=== PATIENT | male | born 1950 | race Caucasian/White ===

== ENCOUNTER → 2017-10-30 | Outpatient (CLI) | payer MEDICARE, MEDICAID, SELFPAY | PROVIDERS: Visit Provider Internal Medicine | DX: E78.5 Hyperlipidemia, unspecified (principal) | CPT/HCPCS: 36415; 80061; 80076 ==

== ENCOUNTER → 2017-11-12 10:08 | Outpatient (REF) | payer MEDICARE, MEDICAID, SELFPAY ==
[2017-11-12 13:01] LABS: Amphetamine/Metha Screen,Urine Negative ng/mL (<1000); Barbiturates Screen,Urine Negative ng/mL (<200); Benzodiazepines Screen,Urine Negative ng/mL (200); Cannabinoid Screen,Urine Negative ng/mL (<50); Cocaine Screen,Urine Negative ng/g (<300); Methadone Screen,Urine Negative ng/mL (<300); Opiate Screen,Urine Negative ng/mL (<300); Phencyclidine Screen,Urine Negative ng/mL (<25)
[2017-11-24 09:19] LABS: Alprazolam Negative (Cutoff=100); Benzodiazepines Positive ng/mL (Cutoff=100); Clonazepam Negative (Cutoff=100); Flurazepam Negative (Cutoff=100); Lorazepam Positive (.); Midazolam Negative (Cutoff=100); Temazepam Negative (Cutoff=100); Triazolam Negative (Cutoff=100)
== END ==
LOC: LAB 10:08
PROVIDERS: Visit Provider Nurse Practitioner Family
DX: Z79.899 Other long term (current) drug therapy (principal); F41.9 Anxiety disorder, unspecified
CPT/HCPCS: 80305

== ENCOUNTER 2018-01-28 07:02 | Day surgery (SDC) | payer MEDICARE, MEDICAID, SELFPAY ==
[2018-01-27 13:34] VITALS: BMI 27.4
[2018-01-28 07:21] VITALS: BP 126/79; PULSE 69; RESP 18; TEMP 36.6; O2SAT 94
--- NOTE | 2018-01-28 08:01 | HMH.OPNOTE ---
Date of procedure: 01/28/18 Pre-op Diagnosis:: 1 cm left axillary sebaceous cyst Post-op Diagnosis:: Same Procedure performed:: Excision of 1 cm left axillary sebaceous cyst Surgeon:: Lizandro Flor MD Anesthesia: local Estimated blood loss (mL): 5 Operative findings:: Cyst in shallow subcutaneous tissue Operative note:: After informed consent was obtained, the patient was taken to the procedure room. He was maintained in the supine position. His left axilla was prepped and draped in a sterile fashion. After infiltration with local anesthetic an elliptical incision was made around the lesion. The lesion was excised in toto sharply with scalpel and passed off for pathologic evaluation. The lesion directed to the fairly shallow subcutaneous tissue. Cautery was utilized to achieve hemostasis. Skin was closed with interrupted 4-0 nylon in a dressing was applied. The patient was transferred to recovery in stable condition. Condition: stable Disposition: PACU Specimens:: 1 cm left axillary sebaceous cyst Complications:: No immediate
[2018-01-28 08:03] VITALS: BP 105/73; PULSE 58; RESP 16; TEMP 36.7; O2SAT 98
[2018-01-28 08:06] VITALS: BP 105/73; PULSE 60; RESP 20; O2SAT 96
--- NOTE | 2018-01-28 09:44 | SUR.OPER ---
dressing applied to left axilla-triple antibiotic ointment, 4x4sl, tegaderm
== END 2018-01-28 08:10 | disposition home or self-care (01) ==
LOC: OUTP 07:04
PROVIDERS: Family Provider Emergency Medicine; PCP Nurse Practitioner Family; Visit Provider Surgery
DX: L72.3 Sebaceous cyst (principal)
CPT/HCPCS: 11401; 88304

== ENCOUNTER → 2018-03-04 08:24 | Outpatient (REF) | payer MEDICARE, MEDICAID, SELFPAY ==
[2018-03-04 14:18] LABS: Amphetamine/Metha Screen,Urine Negative ng/mL (<1000); Barbiturates Screen,Urine Negative ng/mL (<200); Benzodiazepines Screen,Urine Negative ng/mL (200); Cannabinoid Screen,Urine Negative ng/mL (<50); Cocaine Screen,Urine Negative ng/g (<300); Methadone Screen,Urine Negative ng/mL (<300); Opiate Screen,Urine Negative ng/mL (<300); Phencyclidine Screen,Urine Negative ng/mL (<25)
== END ==
LOC: LAB 08:24
PROVIDERS: Visit Provider Nurse Practitioner Family
DX: Z79.899 Other long term (current) drug therapy (principal)
CPT/HCPCS: 80305

== ENCOUNTER → 2018-03-04 23:17 | Outpatient (REF) | payer MEDICARE, MEDICAID, SELFPAY ==
[2018-03-15 22:17] LABS: Alprazolam Negative (Cutoff=100); Benzodiazepines Positive ng/mL (Cutoff=100); Clonazepam Negative (Cutoff=100); Flurazepam Negative (Cutoff=100); Lorazepam Positive (.); Midazolam Negative (Cutoff=100); Temazepam Negative (Cutoff=100); Triazolam Negative (Cutoff=100)
== END ==
LOC: LAB 23:17
PROVIDERS: Visit Provider Nurse Practitioner Family
DX: Z79.899 Other long term (current) drug therapy (principal)
CPT/HCPCS: 80346

== ENCOUNTER → 2018-06-06 15:01 | Outpatient (REF) | payer MEDICARE, MEDICAID, SELFPAY ==
[2018-06-06 20:11] LABS: Amphetamine/Metha Screen,Urine Negative ng/mL (<1000); Barbiturates Screen,Urine Negative ng/mL (<200); Benzodiazepines Screen,Urine Negative ng/mL (<200); Cannabinoid Screen,Urine Negative ng/mL (<50); Cocaine Screen,Urine Negative ng/mL (<300); Methadone Screen,Urine Negative ng/mL (<300); Opiate Screen,Urine Negative ng/mL (<300); Phencyclidine Screen,Urine Negative ng/mL (<25)
== END ==
LOC: LAB 15:01
PROVIDERS: Visit Provider Nurse Practitioner Family
DX: Z79.899 Other long term (current) drug therapy (principal)
CPT/HCPCS: 80305

== ENCOUNTER → 2018-07-05 08:33 | Outpatient (CLI) | payer MEDICARE, MEDICAID, SELFPAY ==
[2018-07-05 08:59] LABS: Basophils % 0.5 % (0.1-2.0); Eosinophils # 0.3 K/mm3 (0.0-0.4); Eosinophils % 3.8 % (0.1-12.0); Hematocrit 44.7 % (42.0-52.0); Hemoglobin 14.5 g/dL (14.1-18.0); Lymphocytes % 28.5 K/mm3 (10-50); Mean Corpuscular HGB Conc 32.5 g/dL (31.8-35.4); Mean Corpuscular Hemoglobin 30.5 pg (27.0-31.2); Mean Platelet Volume 7.2 fl (7.4-10.4); Monocytes # 0.5 K/mm3 (0.1-1.0); Monocytes % 6.9 % (1.7-9.3); Neutrophils # 4.2 K/mm3 (1.8-7.8); Neutrophils % 60.4 % (37.0-80.0); Platelet Count 200 K/mm3 (142-424); Red Blood Count 4.75 M/mm3 (4.60-6.20); Red Cell Distribution Width 13.5 % (11.5-17.5); White Blood Count 6.9 K/mm3 (4.8-10.8)
[2018-07-05 10:11] LABS: Alanine Aminotransferase 28 U/L (12-78); Albumin Level 4.2 gm/dL (3.4-5.0); Alkaline Phosphatase 69 U/L (46-116); Aspartate Amino Transferase 17 U/L (15-37); Bilirubin,Direct 0.1 mg/dL (0.0-0.2); Bilirubin,Indirect 0.6 mg/dL (0.0-0.9); Bilirubin,Total 0.7 mg/dL (0.2-1.0); Total Protein,Serum 7.7 gm/dL (6.4-8.2)
[2018-07-05 10:21] LABS: Alanine Aminotransferase 28 U/L (12-78); Albumin Level 4.1 gm/dL (3.4-5.0); Albumin/Globulin Ratio 1.1 (1.1-1.8); Alkaline Phosphatase 68 U/L (46-116); Anion Gap 10.7 mEq/L (5-15); Aspartate Amino Transferase 17 U/L (15-37); Bilirubin,Total 0.6 mg/dL (0.2-1.0); Blood Urea Nitrogen 21 mg/dL (7-18); Calcium 9.5 mg/dL (8.5-10.1); Carbon Dioxide 33 mmol/L (21.0-32.0); Chloride 104 mmol/L (98-107); Chol/HDL Ratio 5.8 (1-3.5); Cholesterol 228 mg/dL (140-200); Creatinine,Serum 1.38 mg/dL (0.70-1.30); Estimated Glomerular Filt Rate 51 ml/min (>60); GFR (African American) 62 ML/MIN (>60); Globulin 3.6 gm/dl (1.3-3.2); Glucose 104 mg/dL (74-106); HDL Cholesterol 39 mg/dL (27-67); LDL Cholesterol 128 mg/dL (0-130); Potassium 4.7 mmoL/L (3.5-5.1); Sodium 143 mmol/L (136-145); T4 (Thyroxine) 7.6 ug/dl (4.7-13.3); Thyroid Stimulating Hormone 1.76 uIU/ml (0.358-3.740); Total Protein,Serum 7.7 gm/dL (6.4-8.2); Triglycerides 306 mg/dL (30-200); VLDL Cholesterol 61 mg/dL (0-40)
== END ==
PROVIDERS: Physician Assistant; PCP Nurse Practitioner Family; Visit Provider Emergency Medicine
DX: I25.10 Atherosclerotic heart disease of native coronary artery without angina pectoris (principal); R53.83 Other fatigue; I10 Essential (primary) hypertension
CPT/HCPCS: 36415; 80053; 80061; 80076; 84436; 84443; 85025

== ENCOUNTER → 2018-09-08 13:27 | Outpatient (CLI) | payer MEDICARE, MEDICAID, SELFPAY ==
[2018-09-08 17:06] LABS: Amphetamine/Metha Screen,Urine Negative ng/mL (<1000); Barbiturates Screen,Urine Negative ng/mL (<200); Benzodiazepines Screen,Urine Negative ng/mL (<200); Cannabinoid Screen,Urine Negative ng/mL (<50); Cocaine Screen,Urine Negative ng/mL (<300); Methadone Screen,Urine Negative ng/mL (<300); Opiate Screen,Urine Negative ng/mL (<300); Phencyclidine Screen,Urine Negative ng/mL (<25)
== END ==
PROVIDERS: PCP Nurse Practitioner Family; Visit Provider Nurse Practitioner Family
DX: Z79.899 Other long term (current) drug therapy (principal)
CPT/HCPCS: 80305

== ENCOUNTER → 2018-12-06 14:06 | Outpatient (CLI) | payer MEDICARE, MEDICAID, SELFPAY ==
[2018-12-06 15:08] LABS: Amphetamine/Metha Screen,Urine Negative ng/mL (<1000); Barbiturates Screen,Urine Negative ng/mL (<200); Benzodiazepines Screen,Urine Negative ng/mL (<200); Cannabinoid Screen,Urine Negative ng/mL (<50); Cocaine Screen,Urine Negative ng/mL (<300); Methadone Screen,Urine Negative ng/mL (<300); Opiate Screen,Urine Negative ng/mL (<300); Phencyclidine Screen,Urine Negative ng/mL (<25)
[2018-12-10 14:16] LABS: Alprazolam Negative (Cutoff=100); Benzodiazepines Positive ng/mL (Cutoff=100); Clonazepam Negative (Cutoff=100); Flurazepam Negative (Cutoff=100); Lorazepam Positive (.); Midazolam Negative (Cutoff=100); Temazepam Negative (Cutoff=100); Triazolam Negative (Cutoff=100)
== END ==
PROVIDERS: Visit Provider Nurse Practitioner Family
DX: Z79.899 Other long term (current) drug therapy (principal)
CPT/HCPCS: 80305; 80346

== ENCOUNTER → 2019-01-24 14:17 | Outpatient (CLI) | payer MEDICARE, MEDICAID, SELFPAY ==
[2019-01-24 14:35] LABS: Basophils # 0.1 K/mm3 (0-0.2); Eosinophils # 0.2 K/mm3 (0.0-0.4); Eosinophils % 2.6 % (0.1-12.0); Hematocrit 46.1 % (42.0-52.0); Hemoglobin 15.2 g/dL (14.1-18.0); Lymphocytes # 1.8 K/mm3 (0.7-4.5); Lymphocytes % 26.7 % (10-50); Mean Corpuscular Volume 93.8 fl (80-94); Mean Platelet Volume 8.1 fl (7.4-10.4); Monocytes # 0.4 K/mm3 (0.1-1.0); Monocytes % 6.2 % (1.7-9.3); Neutrophils # 4.3 K/mm3 (1.8-7.8); Neutrophils % 63.4 % (37.0-80.0); Platelet Count 231 K/mm3 (142-424); Red Blood Count 4.92 M/mm3 (4.60-6.20); Red Cell Distribution Width 13.7 % (11.5-17.5); White Blood Count 6.8 K/mm3 (4.8-10.8)
[2019-01-24 15:03] LABS: Amphetamine/Metha Screen,Urine Negative ng/mL (<1000); Barbiturates Screen,Urine Negative ng/mL (<200); Benzodiazepines Screen,Urine Negative ng/mL (<200); Cannabinoid Screen,Urine Negative ng/mL (<50); Cocaine Screen,Urine Negative ng/mL (<300); Methadone Screen,Urine Negative ng/mL (<300); Opiate Screen,Urine Negative ng/mL (<300); Phencyclidine Screen,Urine Negative ng/mL (<25)
[2019-01-24 15:19] LABS: Alanine Aminotransferase 31 U/L (12-78); Albumin Level 4.5 gm/dL (3.4-5.0); Albumin/Globulin Ratio 1.2 (1.1-1.8); Alkaline Phosphatase 76 U/L (46-116); Anion Gap 17.1 mEq/L (5-15); Aspartate Amino Transferase 25 U/L (15-37); Bilirubin,Total 0.7 mg/dL (0.2-1.0); Blood Urea Nitrogen 20 mg/dL (7-18); Calcium 9.6 mg/dL (8.5-10.1); Carbon Dioxide 26 mmol/L (21.0-32.0); Chloride 100 mmol/L (98-107); Chol/HDL Ratio 6.6 (1-3.5); Cholesterol 285 mg/dL (140-200); Creatinine,Serum 1.42 mg/dL (0.70-1.30); Estimated Glomerular Filt Rate 50 ml/min (>60); Free Thyroxine Index 2.5 ug/dL (5.93-13.13); GFR (African American) 60 ML/MIN (>60); Globulin 3.7 gm/dl (1.3-3.2); Glucose 115 mg/dL (74-106); HDL Cholesterol 43 mg/dL (27-67); LDL Cholesterol 181 mg/dL (0-130); Potassium 4.1 mmoL/L (3.5-5.1); Sodium 139 mmol/L (136-145); T4 (Thyroxine) 7.9 ug/dl (4.7-13.3); Thyroid Stimulating Hormone 1.66 uIU/ml (0.358-3.740); Total Protein,Serum 8.2 gm/dL (6.4-8.2); Triglycerides 305 mg/dL (30-200); Triiodothryronine (T3) Uptake 32 % (31-39); VLDL Cholesterol 61 mg/dL (0-40)
[2019-01-26 12:57] LABS: Vitamin D 25 Hydroxy 32.1 ng/mL (30.0-100.0)
== END ==
PROVIDERS: Visit Provider Nurse Practitioner Family
DX: E78.5 Hyperlipidemia, unspecified (principal); R53.83 Other fatigue; Z79.899 Other long term (current) drug therapy
CPT/HCPCS: 80053; 80061; 80305; 82652; 84436; 84443; 84479; 85025

== ENCOUNTER → 2019-04-15 08:11 | Outpatient (CLI) | payer MEDICARE, MEDICAID, SELFPAY ==
[2019-04-15 08:45] LABS: Hemoglobin A1C 5.8 % (0.0-7.0)
== END ==
PROVIDERS: Visit Provider Physician Assistant
DX: E78.5 Hyperlipidemia, unspecified (principal); R73.9 Hyperglycemia, unspecified
CPT/HCPCS: 36415; 83036

== ENCOUNTER → 2019-05-15 07:57 | Outpatient (CLI) | payer MEDICARE, MEDICAID, SELFPAY ==
[2019-05-15 12:53] LABS: Anion Gap 15.2 mEq/L (5-15); Blood Urea Nitrogen 20 mg/dL (7-18); Calcium 9.5 mg/dL (8.5-10.1); Carbon Dioxide 25 mmol/L (21.0-32.0); Chloride 102 mmol/L (98-107); Chol/HDL Ratio 4.9 (1-3.5); Cholesterol 256 mg/dL (140-200); Creatinine,Serum 1.41 mg/dL (0.70-1.30); Estimated Glomerular Filt Rate 50 ml/min (>60); GFR (African American) 60 ML/MIN (>60); Glucose 93 mg/dL (74-106); HDL Cholesterol 52 mg/dL (27-67); LDL Cholesterol 190 mg/dL (0-130); Potassium 4.2 mmoL/L (3.5-5.1); Sodium 138 mmol/L (136-145); T4 (Thyroxine) 6.2 ug/dl (4.7-13.3); Triglycerides 69 mg/dL (30-200); VLDL Cholesterol 14 mg/dL (0-40)
== END ==
PROVIDERS: Visit Provider Nurse Practitioner Family
DX: E78.5 Hyperlipidemia, unspecified (principal); F41.9 Anxiety disorder, unspecified; R79.89 Other specified abnormal findings of blood chemistry
CPT/HCPCS: 36415; 80048; 80061; 84436; 84443

== ENCOUNTER → 2019-07-10 18:06 | Outpatient (CLI) | payer MEDICARE, MEDICAID, SELFPAY ==
[2019-07-10 19:11] LABS: Amphetamine/Metha Screen,Urine Negative ng/mL (<1000); Barbiturates Screen,Urine Negative ng/mL (<200); Benzodiazepines Screen,Urine Negative ng/mL (<200); Cannabinoid Screen,Urine Negative ng/mL (<50); Cocaine Screen,Urine Negative ng/mL (<300); Methadone Screen,Urine Negative ng/mL (<300); Opiate Screen,Urine Negative ng/mL (<300); Phencyclidine Screen,Urine Negative ng/mL (<25)
== END ==
PROVIDERS: Visit Provider Nurse Practitioner Family
DX: Z79.899 Other long term (current) drug therapy (principal)
CPT/HCPCS: 80305

== ENCOUNTER → 2019-07-25 08:02 | Outpatient (CLI) | payer MEDICARE, MEDICAID, SELFPAY ==
[2019-07-25 08:42] LABS: Anion Gap 15.4 mEq/L (5-15); Blood Urea Nitrogen 20 mg/dL (7-18); Calcium 9.8 mg/dL (8.5-10.1); Carbon Dioxide 28 mmol/L (21.0-32.0); Chloride 100 mmol/L (98-107); Creatinine,Serum 1.48 mg/dL (0.70-1.30); Estimated Glomerular Filt Rate 47 ml/min (>60); GFR (African American) 57 ML/MIN (>60); Glucose 105 mg/dL (74-106); Potassium 4.4 mmoL/L (3.5-5.1); Sodium 139 mmol/L (136-145)
== END ==
PROVIDERS: Nurse Practitioner Family; Visit Provider Nurse Practitioner Family
DX: R79.89 Other specified abnormal findings of blood chemistry (principal)
CPT/HCPCS: 36415; 80048

== ENCOUNTER → 2019-10-05 16:18 | Outpatient (CLI) | payer MEDICARE, SELFPAY ==
[2019-10-05 16:40] LABS: Basophils # 0.1 K/mm3 (0-0.2); Basophils % 0.8 % (0.1-2.0); Eosinophils # 0.2 K/mm3 (0.0-0.4); Eosinophils % 2.5 % (0.1-12.0); Hematocrit 45.3 % (42.0-52.0); Hemoglobin 14.8 g/dL (14.1-18.0); Lymphocytes # 1.6 K/mm3 (0.7-4.5); Lymphocytes % 19.4 % (10-50); Mean Corpuscular HGB Conc 32.6 g/dL (31.8-35.4); Mean Corpuscular Hemoglobin 30.2 pg (27.0-31.2); Mean Corpuscular Volume 92.5 fl (80-94); Mean Platelet Volume 7.9 fl (7.4-10.4); Monocytes # 0.6 K/mm3 (0.1-1.0); Monocytes % 7.5 % (1.7-9.3); Neutrophils # 5.7 K/mm3 (1.8-7.8); Neutrophils % 69.9 % (37.0-80.0); Platelet Count 230 K/mm3 (142-424); Red Blood Count 4.89 M/mm3 (4.60-6.20); Red Cell Distribution Width 13.9 % (11.5-17.5); White Blood Count 8.2 K/mm3 (4.8-10.8)
[2019-10-05 18:55] LABS: Alanine Aminotransferase 17 U/L (12-78); Albumin Level 4.4 gm/dL (3.4-5.0); Albumin/Globulin Ratio 1.2 (1.1-1.8); Alkaline Phosphatase 73 U/L (46-116); Anion Gap 17.1 mEq/L (5-15); Aspartate Amino Transferase 21 U/L (15-37); Bilirubin,Total 0.4 mg/dL (0.2-1.0); Blood Urea Nitrogen 23 mg/dL (7-18); Calcium 9.2 mg/dL (8.5-10.1); Carbon Dioxide 27 mmol/L (21.0-32.0); Chloride 96 mmol/L (98-107); Chol/HDL Ratio 5.1 (1-3.5); Cholesterol 276 mg/dL (140-200); Creatinine,Serum 1.59 mg/dL (0.70-1.30); Estimated Glomerular Filt Rate 44 ml/min (>60); GFR (African American) 53 ML/MIN (>60); Globulin 3.8 gm/dl (1.3-3.2); Glucose 101 mg/dL (74-106); HDL Cholesterol 54 mg/dL (27-67); LDL Cholesterol 197 mg/dL (0-130); Potassium 4.1 mmoL/L (3.5-5.1); Sodium 136 mmol/L (136-145); T4 (Thyroxine) 7.3 ug/dl (4.7-13.3); Thyroid Stimulating Hormone 1.58 uIU/ml (0.358-3.740); Total Protein,Serum 8.2 gm/dL (6.4-8.2); Triglycerides 126 mg/dL (30-200); VLDL Cholesterol 25 mg/dL (0-40)
[2019-10-05 19:17] LABS: Amphetamine/Metha Screen,Urine Negative ng/mL (<1000); Barbiturates Screen,Urine Negative ng/mL (<200); Benzodiazepines Screen,Urine Negative ng/mL (<200); Cannabinoid Screen,Urine Negative ng/mL (<50); Cocaine Screen,Urine Negative ng/mL (<300); Methadone Screen,Urine Negative ng/mL (<300); Opiate Screen,Urine Negative ng/mL (<300); Phencyclidine Screen,Urine Negative ng/mL (<25)
== END ==
PROVIDERS: Visit Provider Nurse Practitioner Family
DX: Z79.899 Other long term (current) drug therapy (principal); I10 Essential (primary) hypertension
CPT/HCPCS: 36415; 80053; 80061; 80305; 84436; 84443; 85025

== ENCOUNTER → 2019-11-07 07:24 | Outpatient (CLI) | payer MEDICARE, OTHER, SELFPAY ==
--- NOTE | 2019-11-07 | CA_ITS ---
APPROVED REPORT Exam: Pharmacologic Technologist: Ursula Doan Ht: 5 ft 5 in Wt: 190 lbs BSA: 1.94 m2 HR: 51 bpm BP: 139/81 mmHg Indications: Angina Medical History Medications: Omeprazole,,,,, Aspirin,,,,, Losartan,,,,, CloPIdogrel,,,,, BisOPROLOL,,,,, Gemfibrozil,,,,, CoQ10,,,,, RoSUVASTATIN,,,,, DicyCLONINE,,,,, Stress Test Details Test: LEXISCAN HR Resting HR: 56 bpm Max Heart Rate (APMHR): 152 bpm Max HR Achieved: 91 bpm Target HR (85% APMHR): 129 bpm % of APMHR: 59 Recovery HR: 83 bpm BP Resting BP: 139.0/81.0 mmHg Max BP: 139.0/81.0 mmHg Recovery BP: 134.0/84.0 mmHg ECG Clinical Reason for Termination: Completed Protocol Exercise duration: 04:00 min Highest Stage Achieved: Exercise capacity: 1.0 METs Stress ECG Conclusion Non-diagnostic lexiscan stress test. Patient received the infusion per protocol without chest pain, ST segment changes or arrhythmias. See the nuclear report for further information. Test Summary REST . . . . . . . Resting REST 08:17 . . 56 . 139/ 81 . . Stage 1 . . . . . . . Myoview Injected Stage 1 01:00 . . 87 . . . . Stage 2 01:00 . . 91 . 130/ 76 . . Stage 3 01:00 . . 88 . 132/ 78 . . Stage 4 01:00 . . 90 . 127/ 81 . Stop exercise at 04:00 RECOVERY 01:00 . . 82 . . . . RECOVERY 02:00 . . 85 . 133/ 80 . . RECOVERY 03:00 . . 82 . 133/ 80 . . RECOVERY 04:00 . . 78 . 134/ 84 . . RECOVERY 04:04 . . 75 . 134/ 84 . . Electronically signed by : Jovani Thakkar, 11/08/2019 05:59:57
--- NOTE | 2019-11-07 07:25 | CA_ITS ---
APPROVED REPORT EXAM: Comprehensive 2D, Doppler, and color-flow Echocardiogram Pipe Fitter Helper: Shilpa Rodriguez CRT Ht: 5 ft 6 in Wt: 191lbs BSA: 1.96 BP: 126/100 mmHg Indications: cad, stents, cp, htn, hld 2D Dimensions LVOT 2.06 cm (M/F) 1.5-2.5 M-Mode Dimensions RVDd 2.28 cm (0.9-2.6) LVDd 4.49 cm (3.5-5.7) LVDs 2.88 cm (3.5-5.7) IVSd 2.11 cm (0.6-1.1) PWd 0.64 cm (0.6-1.1) EF (Teich) 65.50% FS 35.90% EDV (Teich) 92.00 mL ESV (Teich) 31.70 mL LV Diastology E/A Ratio 0.68 Mitral Valve MV A Velocity 99.00 (40-130 cm/s) Left Ventricle Left atrium is mildly enlarged, left ventricle is normal size, mild concentric left ventricular hypertrophy, visually estimated ejection fraction 55% with no regional wall motion abnormality. Grade 1 diastolic dysfunction seen without tissue Doppler evidence of raise left atrial pressure. Right Ventricle Right atrium and right ventricular normal size and contractility. Aortic Valve Aortic valve is minimally thickened and fibrosed, there is no aortic stenosis or aortic insufficiency. Mitral Valve Mitral valve is grossly normal, there is mild mitral regurgitation. Tricuspid Valve Tricuspid valve is grossly normal, there is mild tricuspid regurgitation. Tricuspid regurgitation jet velocity is inadequate for calculation of the right ventricular systolic pressure. Pulmonic Valve Pulmonic valve is poorly visualized. Great Vessels Aortic root is normal size. Pericardium No significant pericardial effusion noted. Conclusion 1. Mildly enlarged left atrium, normal left ventricular size, mild concentric left ventricular hypertrophy, visually estimated ejection fraction 55% with no regional wall motion abnormality, grade 1 diastolic dysfunction seen without tissue Doppler evidence of raise left atrial pressure. 2. Mild mitral and tricuspid regurgitation. 3. No significant pericardial effusion noted. Electronically signed by : Jovani Thakkar, 11/08/2019 06:15:48
--- NOTE | 2019-11-07 07:27 | NM_ITS ---
APPROVED REPORT Exam: Nuclear Stress Test Indication: Chest pain, HTN, CAD, High cholesterol, Family history Patient Location: Outpatient Stress Tech: Ursula Doan [place] Tech:Eli Berg, ARRT, RT (R)(N) Ht: 5 ft 5 in Wt: 190 lbs HR: 51 bpm BP: 139/81 mmHg BSA: 1.94 m2 BMI: 31.6 History: Chest pain, HTN, CAD, High cholesterol, Family history Procedure: Patient received a 0.4 mg of intravenous Lexiscan, resting heart rate 51 bpm, resting blood pressure 139/81 mmHg, with Lexiscan maximum heart rate achived was 91 bpm which is Less than 85 % of the maximum predicted heart rate and blood pressure was 130/76 mmHg. Electrocardiogram Resting electrocardiogram showed sinus bradycardia, right ventricular conduction delay, with Lexiscan there is less than 1.[address] segment depression noted from the baseline EKG. The EKG portion of the Lexiscan Myoview is nondiagnostic. Cardiac Stress and Resting SPECT Images: Cardiac Stress and Resting SPECT images were obtained using technetium 99m Myoview 32.8 mCi stress and 10.86 mCi at rest. Gated SPECT with analysis of segmental wall motion and calculation of the ejection fraction also done. Cardiac stress and resting SPECT images show uniform myocardial activity without segmental perfusion abnormality, computer derived ejection fraction is over 65% with no regional wall motion abnormality, right ventricle is normal size and contractility. Conclusion: 1. The EKG portion of the Lexiscan Myoview is nondiagnostic. 2. No scintigraphic evidence of reversible ischemia seen, computer derived ejection fraction is over 65% with no regional wall motion abnormality, right ventricle is normal size and contractility. 3. Normal Lexiscan Myoview study. Electronically signed by : Jovani Thakkar, 11/08/2019 06:02:15
--- NOTE | 2019-11-07 08:26 | HMH.ITSHM ---
Current Home Medications as stated by this patient Pipe Rodriguez or underwriting service representative. []COQ10 RASUVASTATIN LOSARTAN OMEPRAZOLE DICYCLOMINE BISOPROLOL ASA GEMFIBROZIL CLOPIDOGREL
== END ==
PROVIDERS: PCP Nurse Practitioner Family; Visit Provider Internal Medicine Cardiovascular Disease
DX: I10 Essential (primary) hypertension (principal); I20.8 Other forms of angina pectoris
CPT/HCPCS: 78452; 93017; 93306; A9502; J2785

== ENCOUNTER → 2019-11-08 15:43 | Outpatient (CLI) | payer MEDICARE, OTHER, SELFPAY ==
[2019-11-14 20:14] LABS: Amphetamine/Metha Screen,Urine Negative ng/mL (<1000); Barbiturates Screen,Urine Negative ng/mL (<200); Benzodiazepines Screen,Urine Negative ng/mL (<200); Cannabinoid Screen,Urine Negative ng/mL (<50); Cocaine Screen,Urine Negative ng/mL (<300); Methadone Screen,Urine Negative ng/mL (<300); Opiate Screen,Urine Negative ng/mL (<300); Phencyclidine Screen,Urine Negative ng/mL (<25)
== END ==
PROVIDERS: Visit Provider Nurse Practitioner Family
DX: Z79.899 Other long term (current) drug therapy (principal)
CPT/HCPCS: 80305

== ENCOUNTER → 2019-11-09 10:45 | Outpatient (CLI) | payer MEDICARE, OTHER, SELFPAY ==
[2019-11-09 12:03] LABS: Anion Gap 12.7 mEq/L (5-15); Blood Urea Nitrogen 24 mg/dL (7-18); Calcium 8.7 mg/dL (8.5-10.1); Carbon Dioxide 28 mmol/L (21.0-32.0); Chloride 102 mmol/L (98-107); Creatinine,Serum 1.53 mg/dL (0.70-1.30); Estimated Glomerular Filt Rate 45 ml/min (>60); GFR (African American) 55 ML/MIN (>60); Glucose 100 mg/dL (74-106); Potassium 3.7 mmoL/L (3.5-5.1); Sodium 139 mmol/L (136-145)
== END ==
PROVIDERS: Visit Provider Internal Medicine Cardiovascular Disease
DX: E78.5 Hyperlipidemia, unspecified (principal); F41.9 Anxiety disorder, unspecified; I10 Essential (primary) hypertension; I25.10 Atherosclerotic heart disease of native coronary artery without angina pectoris
CPT/HCPCS: 36415; 80048

== ENCOUNTER → 2019-12-08 13:51 | Outpatient (CLI) | payer MEDICARE, OTHER, SELFPAY ==
[2019-12-08 16:23] LABS: Amphetamine/Metha Screen,Urine Negative ng/mL (<1000); Barbiturates Screen,Urine Negative ng/mL (<200); Benzodiazepines Screen,Urine Negative ng/mL (<200); Cannabinoid Screen,Urine Negative ng/mL (<50); Cocaine Screen,Urine Negative ng/mL (<300); Methadone Screen,Urine Negative ng/mL (<300); Opiate Screen,Urine Negative ng/mL (<300); Phencyclidine Screen,Urine Negative ng/mL (<25)
[2019-12-17 07:25] LABS: Alprazolam Negative (Cutoff=100); Benzodiazepines Positive ng/mL (Cutoff=100); Clonazepam Negative (Cutoff=100); Flurazepam Negative (Cutoff=100); Lorazepam Positive (.); Midazolam Negative (Cutoff=100); Temazepam Negative (Cutoff=100); Triazolam Negative (Cutoff=100)
== END ==
PROVIDERS: Visit Provider Nurse Practitioner Family
DX: Z79.899 Other long term (current) drug therapy (principal)
CPT/HCPCS: 80305; 80346

== ENCOUNTER → 2020-05-09 09:12 | Outpatient (CLI) | payer MEDICARE, OTHER, SELFPAY ==
[2020-05-09 09:33] LABS: Basophils # 0.1 K/mm3 (0-0.2); Basophils % 0.8 % (0.1-2.0); Eosinophils # 0.3 K/mm3 (0.0-0.4); Eosinophils % 3.6 % (0.1-12.0); Hematocrit 43.1 % (42.0-52.0); Hemoglobin 14.9 g/dL (14.1-18.0); Lymphocytes # 2.2 K/mm3 (0.7-4.5); Lymphocytes % 26.7 % (10-50); Mean Corpuscular HGB Conc 34.5 g/dL (31.8-35.4); Mean Corpuscular Volume 92.8 fl (80-94); Mean Platelet Volume 8.5 fl (7.4-10.4); Monocytes # 0.6 K/mm3 (0.1-1.0); Monocytes % 6.9 % (1.7-9.3); Neutrophils # 5.2 K/mm3 (1.8-7.8); Platelet Count 224 K/mm3 (142-424); Red Blood Count 4.64 M/mm3 (4.60-6.20); White Blood Count 8.4 K/mm3 (4.8-10.8)
[2020-05-09 09:55] LABS: Alanine Aminotransferase 17 U/L (12-78); Albumin Level 4.6 g/dl (3.5-5.0); Albumin/Globulin Ratio 1.6 (1.1-1.8); Alkaline Phosphatase 88 U/L (38-126); Anion Gap 12.7 mEq/L (5-15); Aspartate Amino Transferase 35 U/L (17-59); Bilirubin,Total 0.9 mg/dl (0.2-1.3); Blood Urea Nitrogen 31 mg/dl (9-20); Calcium 9.7 mg/dl (8.4-10.2); Carbon Dioxide 30 mmol/L (22.0-30.0); Chloride 97 mmol/L (98-107); Chol/HDL Ratio 3.9 (1-3.5); Cholesterol 168 mg/dl (140-200); Estimated Glomerular Filt Rate 43 ml/min (>60); GFR (African American) 52 ML/MIN (>60); Globulin 2.9 g/dL (1.3-3.2); Glucose 124 mg/dl (74-100); HDL Cholesterol 43 mg/dl (40-60); Potassium 3.7 mmoL/L (3.5-5.1); Sodium 136 mmol/L (136-145); Total Protein,Serum 7.5 g/dl (6.3-8.2); Triglycerides 194 mg/dl (30-150); VLDL Cholesterol 39 mg/dL (0-40)
[2020-05-09 10:07] LABS: Direct LDL Cholesterol 78.73 mg/dL (100-129)
[2020-05-09 10:14] LABS: T4 (Thyroxine) 7.2 ug/dl (5.53-11.0)
[2020-05-09 10:27] LABS: Thyroid Stimulating Hormone 2.08 uIU/mL (0.465-4.68)
[2020-05-14 06:42] LABS: 1,25 Dihydroxy Vitamin D 30 pg/mL (.); 1,25-Dihydroxy, Vitamin D-2 <10 pg/mL (.); 1,25-Dihydroxy, Vitamin D-3 30 pg/mL (.)
== END ==
PROVIDERS: Visit Provider Nurse Practitioner Family
DX: I10 Essential (primary) hypertension (principal); E78.5 Hyperlipidemia, unspecified
CPT/HCPCS: 36415; 80053; 80061; 82652; 84436; 84443; 85025

== ENCOUNTER → 2020-06-10 16:26 | Outpatient (CLI) | payer MEDICARE, OTHER, SELFPAY ==
[2020-06-10 18:14] LABS: Anion Gap 16.8 mEq/L (5-15); Blood Urea Nitrogen 26 mg/dl (9-20); Calcium 10.3 mg/dl (8.4-10.2); Carbon Dioxide 30 mmol/L (22.0-30.0); Chloride 97 mmol/L (98-107); Estimated Glomerular Filt Rate 50 ml/min (>60); GFR (African American) 61 ML/MIN (>60); Glucose 125 mg/dl (74-100); Potassium 3.8 mmoL/L (3.5-5.1); Sodium 140 mmol/L (136-145)
== END ==
PROVIDERS: Visit Provider Family Medicine
DX: E78.2 Mixed hyperlipidemia (principal); E11.9 Type 2 diabetes mellitus without complications
CPT/HCPCS: 80048; 83036

== ENCOUNTER → 2021-05-12 07:57 | Outpatient (CLI) | payer MEDICARE, OTHER, SELFPAY ==
[2021-05-12 08:50] LABS: Basophils # 0.1 K/mm3 (0-0.2); Basophils % 0.9 % (0.1-2.0); Eosinophils # 0.2 K/mm3 (0.0-0.4); Eosinophils % 2.5 % (0.1-12.0); Hematocrit 42.2 % (42.0-52.0); Hemoglobin 14.2 g/dL (14.1-18.0); Lymphocytes # 2.5 K/mm3 (0.7-4.5); Lymphocytes % 27.4 % (10-50); Mean Corpuscular HGB Conc 33.7 g/dL (31.8-35.4); Mean Corpuscular Hemoglobin 30.7 pg (27.0-31.2); Mean Corpuscular Volume 91.3 fl (80-94); Monocytes # 0.6 K/mm3 (0.1-1.0); Monocytes % 6.9 % (1.7-9.3); Neutrophils # 5.8 K/mm3 (1.8-7.8); Neutrophils % 62.4 % (37.0-80.0); Platelet Count 192 K/mm3 (142-424); Red Blood Count 4.62 M/mm3 (4.60-6.20); Red Cell Distribution Width 14.1 % (11.5-17.5); White Blood Count 9.3 K/mm3 (4.8-10.8)
[2021-05-12 10:33] LABS: Chloride 104 mmol/L (98-107); Potassium 5.1 mmoL/L (3.5-5.1); Sodium 143 mmol/L (136-145)
[2021-05-12 10:36] LABS: Alanine Aminotransferase 16 U/L (12-78); Albumin Level 4.4 g/dl (3.5-5.0); Alkaline Phosphatase 90 U/L (38-126); Anion Gap 14.1 mEq/L (5-15); Aspartate Amino Transferase 25 U/L (17-59); Bilirubin,Direct 0.3 mg/dl (0.0-0.4); Bilirubin,Indirect 0.4 mg/dL (0.0-0.9); Bilirubin,Total 0.7 mg/dl (0.2-1.3); Bilirubin,Unconjugated 0.4 mg/dL (0.0-1.1); Blood Urea Nitrogen 23 mg/dl (9-20); Calcium 9.2 mg/dl (8.4-10.2); Carbon Dioxide 30 mmol/L (22.0-30.0); Cholesterol 147 mg/dl (140-200); Estimated Glomerular Filt Rate 55 ml/min (>60); GFR (African American) 66 ML/MIN (>60); Glucose 110 mg/dl (74-100); Total Protein,Serum 7.2 g/dl (6.3-8.2); Triglycerides 230 mg/dl (30-150); VLDL Cholesterol 46 mg/dL (0-40)
[2021-05-12 10:37] LABS: Chol/HDL Ratio 4.2 (1-3.5); HDL Cholesterol 35 mg/dl (40-60)
[2021-05-12 10:50] LABS: Direct LDL Cholesterol 68.15 mg/dL (100-129)
== END ==
PROVIDERS: Visit Provider Physician Assistant
DX: E78.2 Mixed hyperlipidemia (principal); I10 Essential (primary) hypertension; I25.10 Atherosclerotic heart disease of native coronary artery without angina pectoris
CPT/HCPCS: 36415; 80048; 80061; 80076; 85025

== ENCOUNTER → 2021-06-10 17:34 | Outpatient (CLI) | payer MEDICARE, OTHER, SELFPAY ==
[2021-06-10 20:50] LABS: Amphetamine/Metha Screen,Urine Negative ng/ml (<1000)
[2021-06-10 20:51] LABS: Barbiturates Screen,Urine Negative ng/ml (<200); Benzodiazepines Screen,Urine Negative ng/ml (<200)
[2021-06-10 20:52] LABS: Cannabinoid Screen,Urine Negative ng/ml (<50); Cocaine Screen,Urine Negative ng/ml (<300)
[2021-06-10 20:54] LABS: Opiate Screen,Urine Negative ng/ml (<300)
[2021-06-11 00:04] LABS: Methadone Screen,Urine Negative ng/ml (<300); Phencyclidine Screen,Urine Negative ng/ml (<25)
== END ==
PROVIDERS: Visit Provider Nurse Practitioner Family
DX: Z79.899 Other long term (current) drug therapy (principal)
CPT/HCPCS: 80305

== ENCOUNTER → 2022-02-20 07:46 | Outpatient (CLI) | payer MEDICARE, OTHER, SELFPAY ==
[2022-02-20 08:40] LABS: Basophils # 0.1 K/mm3 (0-0.2); Basophils % 1.6 % (0.1-2.0); Eosinophils # 0.2 K/mm3 (0.0-0.4); Eosinophils % 3.3 % (0.1-12.0); Hematocrit 43.8 % (42.0-52.0); Hemoglobin 14.5 g/dL (14.1-18.0); Lymphocytes % 27.6 % (10-50); Mean Corpuscular HGB Conc 33.1 g/dL (31.8-35.4); Mean Corpuscular Hemoglobin 31.7 pg (27.0-31.2); Mean Corpuscular Volume 95.8 fl (80-94); Mean Platelet Volume 8.1 fl (7.4-10.4); Monocytes # 0.6 K/mm3 (0.1-1.0); Monocytes % 8.6 % (1.7-9.3); Neutrophils # 4.2 K/mm3 (1.8-7.8); Neutrophils % 58.9 % (37.0-80.0); Platelet Count 207 K/mm3 (142-424); Red Blood Count 4.58 M/mm3 (4.60-6.20); Red Cell Distribution Width 13.9 % (11.5-17.5); White Blood Count 7.1 K/mm3 (4.8-10.8)
[2022-02-20 11:25] LABS: Alanine Aminotransferase 21 U/L (12-78); Albumin Level 4.3 g/dl (3.5-5.0); Albumin/Globulin Ratio 1.7 (1.1-1.8); Alkaline Phosphatase 76 U/L (38-126); Anion Gap 10.4 mEq/L (5-15); Aspartate Amino Transferase 34 U/L (17-59); Bilirubin,Total 0.5 mg/dl (0.2-1.3); Blood Urea Nitrogen 18 mg/dl (9-20); Calcium 9.1 mg/dl (8.4-10.2); Carbon Dioxide 27 mmol/L (22.0-30.0); Chloride 104 mmol/L (98-107); Chol/HDL Ratio 4.5 (1-3.5); Cholesterol 148 mg/dl (140-200); Estimated Glomerular Filt Rate 60 ml/min (>60); GFR (African American) 72 ML/MIN (>60); Globulin 2.5 g/dL (1.3-3.2); Glucose 125 mg/dl (74-100); HDL Cholesterol 33 mg/dl (40-60); Potassium 4.4 mmoL/L (3.5-5.1); Sodium 137 mmol/L (136-145); Total Protein,Serum 6.8 g/dl (6.3-8.2); Triglycerides 200 mg/dl (30-150); VLDL Cholesterol 40 mg/dL (0-40)
[2022-02-20 11:37] LABS: Direct LDL Cholesterol 61.41 mg/dL (100-129)
[2022-02-20 11:55] LABS: Prostate Specific Ag Screen 0.3 ng/ml (0.0-4.0)
== END ==
PROVIDERS: Visit Provider Family Medicine
DX: Z00.00 Encounter for general adult medical examination without abnormal findings (principal); E78.2 Mixed hyperlipidemia; Z12.5 Encounter for screening for malignant neoplasm of prostate; E78.5 Hyperlipidemia, unspecified
CPT/HCPCS: 36415; 80053; 80061; 85025; G0103

== ENCOUNTER 2022-05-23 06:40 | Emergency (ER) | payer MEDICARE, OTHER, SELFPAY ==
[2022-05-23 06:46] VITALS: BP 192/98; PULSE 61; RESP 18; O2SAT 97
[2022-05-23 06:52] VITALS: BP 192/98; PULSE 61; RESP 18; TEMP 36.7; O2SAT 99; BMI 31.9
--- NOTE | 2022-05-23 06:55 | ECG_ITS ---
APPROVED REPORT Exam: Resting ECG HR:59 bpm ECG Measurements Heart Rate 59 AXES NC 191 P 56 QRSd 106 QRS -14 QT 434 T 29 QTc 434 Conclusion SINUS BRADYCARDIA LOW QRS VOLTAGE IN PRECORDIAL LEADS [QRS DEFLECTION < 1.0 mV IN CHEST LEADS] BORDERLINE ECG UNCONFIRMED REPORT Electronically signed by : Cory Luis MD 05/26/2022 21:16:50
--- NOTE | 2022-05-23 07:00 | XR_ITS ---
PROCEDURE INFORMATION: Exam: XR Chest Exam date and time: 05/23/2022 6:58 AM Age: 72 years old Clinical indication: Other: High blood pressure, weakness; Additional info: Weakness, HTN TECHNIQUE: Imaging protocol: Radiologic exam of the chest. Views: 2 views. COMPARISON: CR CXR CHEST(2 VIEWS-NOT PORTABLE) 05/17/2017 10:37 AM FINDINGS: Lungs: Unremarkable. No consolidation. Pleural spaces: Unremarkable. No pleural effusion. No pneumothorax. Heart/Mediastinum: Unremarkable. No cardiomegaly. Bones/joints: Unremarkable. IMPRESSION: No acute findings.
--- NOTE | 2022-05-23 07:00 | PC.NURSE ---
pt returning from radiology
[2022-05-23 07:01] VITALS: BP 157/86; PULSE 55; RESP 18; O2SAT 96
[2022-05-23 07:07] LABS: Basophils # 0.1 K/mm3 (0-0.2); Eosinophils # 0.3 K/mm3 (0.0-0.4); Eosinophils % 3.6 % (0.1-12.0); Hematocrit 42.9 % (42.0-52.0); Hemoglobin 14.5 g/dL (14.1-18.0); Lymphocytes # 2.4 K/mm3 (0.7-4.5); Lymphocytes % 32.8 % (10-50); Mean Corpuscular HGB Conc 33.7 g/dL (31.8-35.4); Mean Corpuscular Hemoglobin 31.1 pg (27.0-31.2); Mean Corpuscular Volume 92.3 fl (80-94); Mean Platelet Volume 7.8 fl (7.4-10.4); Monocytes # 0.5 K/mm3 (0.1-1.0); Monocytes % 6.7 % (1.7-9.3); Neutrophils # 4.1 K/mm3 (1.8-7.8); Platelet Count 178 K/mm3 (142-424); Red Blood Count 4.64 M/mm3 (4.60-6.20); Red Cell Distribution Width 13.7 % (11.5-17.5); White Blood Count 7.3 K/mm3 (4.8-10.8)
[2022-05-23 07:11] LABS: Alanine Aminotransferase 32 U/L (12-78); Albumin Level 4.2 g/dl (3.5-5.0); Albumin/Globulin Ratio 1.3 (1.1-1.8); Alkaline Phosphatase 86 U/L (38-126); Anion Gap 10.9 mEq/L (5-15); Aspartate Amino Transferase 35 U/L (17-59); Bilirubin,Total 0.5 mg/dl (0.2-1.3); Blood Urea Nitrogen 18 mg/dl (9-20); Calcium 9.2 mg/dl (8.4-10.2); Carbon Dioxide 29 mmol/L (22.0-30.0); Chloride 104 mmol/L (98-107); Creatinine Clearance Estimated 66 mL/min (50-200); Estimated Glomerular Filt Rate 54 ml/min (>60); GFR (African American) 66 ML/MIN (>60); Globulin 3.3 g/dL (1.3-3.2); Glucose 148 mg/dl (74-100); Potassium 3.9 mmoL/L (3.5-5.1); Sodium 140 mmol/L (136-145); Total Protein,Serum 7.5 g/dl (6.3-8.2)
--- NOTE | 2022-05-23 07:15 | PC.NURSE ---
report received by Brianda rn
[2022-05-23 07:16] LABS: C-Reactive Protein 1.4 mg/L (0-4)
[2022-05-23 07:26] LABS: Troponin I < 0.01 ng/ml (0.00-0.034)
[2022-05-23 07:30] VITALS: BP 146/83; PULSE 52; RESP 18; O2SAT 96
[2022-05-23 07:30] LABS: Procalcitonin 0.051 ng/mL (0.0-2.0)
[2022-05-23 07:37] LABS: Erythrocyte Sedimentation Rate 17 mm/hr (0-20)
--- NOTE | 2022-05-23 07:53 | PC.NURSE ---
Pt resting on stretcher in room at this time. No needs voiced.
--- NOTE | 2022-05-23 07:58 | PC.NURSE ---
MD at bedside speaking with pt
[2022-05-23 08:00] VITALS: BP 133/76; PULSE 49; RESP 18; O2SAT 97
--- NOTE | 2022-05-23 08:03 | HMH.EDWEAK ---
ED Disposition Clinical Impression: Hypertensive urgency Disposition: Home, Self-Care Condition on Discharge: Good Instructions: DI for High Blood Pressure Additional Instructions: monitor bp at home and see pcp in am Prescriptions: Amlodipine Besylate [Norvasc 2.5mg tablet] 2.5 mg PO HS #30 tab Transmission Status: Pending to [id number] Referrals: Bel Ruano APRN [Primary Care Provider] - - Critical Care Critical Care Time: No Attestation: On 05/23/22, the high probability of a clinically significant, sudden or life threatening deterioration of the following system(s) required my full and direct attention, intervention and personal management. The time I documented below is in addition to time spent performing reported procedures but includes the following listed in this critical care notation. Medical Decision Making - Medical Records Medical records reviewed: Yes: I reviewed the patient's medical records. - Jb Inquiry Pt receiving controlled substance: No Vital Signs: 05/23/22 06:46 05/23/22 06:52 05/23/22 07:01 Temperature 98.1 F Temperature Source Oral Pulse Rate 61 55 L Pulse Rate [Apical] 61 Respiratory Rate 18 18 18 Blood Pressure 192/98 H 157/86 H Blood Pressure [Right Arm] 192/98 H Blood Pressure Mean 124 132 Blood Pressure Mean [Right Arm] 129 Blood Pressure Source [Right Arm] Automatic Cuff Blood Pressure Position [Right Arm] Sitting 02 Sat by Pulse Oximetry 97 99 96 Oxygen Delivery Method Room Air 05/23/22 07:30 05/23/22 08:00 Temperature Temperature Source Pulse Rate 52 L 49 L Pulse Rate [Apical] Respiratory Rate 18 18 Blood Pressure 146/83 H 133/76 Blood Pressure [Right Arm] Blood Pressure Mean 122 95 Blood Pressure Mean [Right Arm] Blood Pressure Source [Right Arm] Blood Pressure Position [Right Arm] 02 Sat by Pulse Oximetry 96 97 Oxygen Delivery Method - Lab Data Lab results reviewed: Yes: I reviewed the patient's lab results. Lab Results 05/23/22 06:55: WBC 7.3, RBC 4.64, Hgb 14.5, Hct 42.9, MCV 92.3, MCH 31.1, MCHC 33.7, RDW 13.7, Plt Count 178, MPV 7.8, Neut % (Auto) 56.0, Lymph % (Auto) 32.8, [place] % (Auto) 6.7, Eos % (Auto) 3.6, Baso % (Auto) 1.0, Neut # (Auto) 4.1, Lymph # (Auto) 2.4, [place] # (Auto) 0.5, Eos # (Auto) 0.3, Baso # (Auto) 0.1, ESR 17 05/23/22 06:55: Sodium 140, Potassium 3.9, Chloride 104, Carbon Dioxide 29, Anion Gap 10.9, BUN 18, Creatinine 1.30 H, Estimated Creat Clear 66, Estimated GFR 54 L, Est GFR ( Amer) 66, Glucose 148 H, Calcium 9.2, Total Bilirubin 0.5, AST 35, ALT 32, Alkaline Phosphatase 86, Troponin I < 0.01, C-Reactive Protein 1.4, Total Protein 7.5, Albumin 4.2, Globulin 3.3 H, Albumin/Globulin Ratio 1.3, Procalcitonin 0.051 Result diagrams: 05/23/22 06:55 05/23/22 06:55 Orders (Tests/Meds): ED MEDICATIONS Discontinued Medications Generic Name Dose Route Start Last Admin Trade Name Freq PRN Reason Stop Dose Admin Clonidine HCl 0.1 mg 05/23/22 07:03 05/23/22 07:04 Clonidine 0.1mg Tablet PO 05/23/22 07:04 0.1 mg ONCE ONE Administration Sodium Chloride 1,000 mls @ 999 mls/hr 05/23/22 07:00 05/23/22 07:04 Sod Chlor 0.9% 1000ml Bag IV 05/23/22 08:00 999 mls/hr .Q1H1M MARYCARMEN Administration ORDERS Category Date Time Status XR chest 2V Stat Exams 05/23/22 07:00 Taken Troponin I Q3H Lab 05/23/22 10:00 Ordered Troponin I Q3H Lab 05/23/22 13:00 Ordered - ECG Data Tracing #1 Arrhythmias present: sinus isak Ischemic changes: non-specific ST-T wave changes - JULISSA Score for Non-Stemi Age of Patient: 70-79 years old Heart Rate: 50-69 bpm Systolic Blood Pressure: 160-199 mmHg Serum Creatinine: 1.20-1.59 mg/dl CHF [place] Class: I-No CHF Other Risk Factors: None Non-Stemi Risk Score: 98 Medical Decision Narrative: have acute hypertensive eppisode with stable exam and labs - will add norvasc at bed time Weakness HPI
--- NOTE | 2022-05-23 08:26 | PC.NURSE ---
MD at bedside speaking with pt about POC.
[2022-05-23 08:51] VITALS: BP 124/80; PULSE 57; RESP 18; TEMP 36.7; O2SAT 97
== END 2022-05-23 08:52 | disposition home or self-care (01) ==
PROVIDERS: Emergency Provider Emergency Medicine; PCP Nurse Practitioner Family
DX: I16.0 Hypertensive urgency (principal); F41.9 Anxiety disorder, unspecified; I25.10 Atherosclerotic heart disease of native coronary artery without angina pectoris; Z95.5 Presence of coronary angioplasty implant and graft; F32.A Depression, unspecified; E78.5 Hyperlipidemia, unspecified
CPT/HCPCS: 71046; 80053; 84145; 84484; 85025; 85651; 86140; 93005; 96360; 99285

== ENCOUNTER 2022-09-07 17:11 | Emergency (ER) | payer MEDICARE, OTHER, SELFPAY ==
[2022-09-07 17:12] VITALS: BP 142/91; PULSE 81; RESP 16; TEMP 36.8; O2SAT 100; BMI 30.7
--- NOTE | 2022-09-07 17:38 | XR_ITS ---
PROCEDURE INFORMATION: Exam: XR Lumbosacral Spine Exam date and time: 09/07/2022 5:38 PM Age: 72 years old Clinical indication: Low back pain TECHNIQUE: Imaging protocol: Radiologic exam of the lumbosacral spine. Views: 2 or 3 views. COMPARISON: ABDPELW/O CT ABD PELVIS W/O CONTRAST 04/29/2017 8:31 PM FINDINGS: Bones/joints: Focal retrolisthesis of L5 over S1. Vertebral alignment is otherwise maintained. There is preservation of vertebral body heights. No visible acute fracture. Anterior vertebral osteophytes noted Soft tissues: Unremarkable. IMPRESSION: Focal retrolisthesis of L5 over S1 likely degenerative. Otherwise common no acute fracture or traumatic subluxation.
--- NOTE | 2022-09-07 17:38 | HMH.EDGENADL ---
Discharge Plan Disposition Patient Disposition: Home, Self-Care Condition: Good Prescriptions Prescriptions: New methocarbamol 750 mg tablet 750 mg PO Q8H Qty: 90 0RF lidocaine [Lidoderm] 5 % adhesive patch,medicated 1 patch topical Q24H Qty: 30 0RF Rx Instructions: leave on most painful area for up to 12 hrs ibuprofen 600 mg tablet 600 mg PO Q6H PRN (Reason: pain) Qty: 30 0RF No Action coenzyme [id number] E 100-100 mg-unit capsule 1 cap PO DAILY aspirin [Adult Low Dose Aspirin] 81 mg tablet,delayed release (DR/EC) 81 mg PO QDAY cholecalciferol (vitamin D3) 25 mcg (1,000 unit) capsule 25 mcg PO DAILY rosuvastatin 10 mg tablet See Rx Instructions .ROUTE .COMPLEX Qty: 90 3RF Dose Instruction: TAKE 1 TABLET BY MOUTH DAILY Rx Instructions: TAKE 1 TABLET BY MOUTH DAILY omeprazole 20 mg capsule,delayed release(DR/EC) See Rx Instructions .ROUTE .COMPLEX Qty: 180 3RF Dose Instruction: TAKE 1 CAPSULE BY MOUTH TWICE DAILY Rx Instructions: TAKE 1 CAPSULE BY MOUTH TWICE DAILY bisoprolol fumarate 5 mg tablet 5 mg PO DAILY Qty: 90 4RF lorazepam 0.5 mg tablet 0.5 mg PO BID PRN (Reason: anxiety ) Qty: 60 3RF losartan 100 mg tablet 100 mg PO DAILY Qty: 90 3RF amlodipine [Norvasc] 10 mg tablet 10 mg PO DAILY Qty: 90 3RF polyethylene glycol 3350 [Miralax] 17 gram/dose powder 17 g PO DAILY Qty: 527 1RF dicyclomine 20 mg tablet 20 mg PO QID Qty: 120 3RF clopidogrel 75 mg tablet 75 mg PO DAILY Qty: 90 3RF Referrals Follow up/Referrals: Luis Haines MD [Primary Care Provider] - See instructions Clinical Impressions Clinical Impression: Strain of lumbar region Instructions Patient Instructions: DI for Low Back Pain, Methocarbamol, Ibuprofen, Lidocaine Transdermal Patch Discharge ED Provider: Marlon Santiago Adult HPI General Chief complaint: Back Pain/Injury Stated complaint: back pain Time Seen by Provider: 09/07/22 17:29 History of Present Illness HPI narrative: 72-year-old male presents with right lower back pain since last night, no known injury or strain. Denies midline tenderness, denies saddle anesthesia, numbness tingling radiation down the leg, trouble with urination, or bowel movements. No recent procedures, no history of cancer and is not diabetic. He took a muscle relaxer approximately 4 PM today without significant relief. Denies any fevers Related Data Home Medications Medication Instructions Recorded Confirmed aspirin 81 mg tablet,delayed 81 mg PO QDAY Heart disease 11/12/17 05/26/22 release (Adult Low Dose Aspirin) coenzyme [id number] E 100 mg-100 1 cap PO DAILY Supplement 11/12/17 05/26/22 unit capsule cholecalciferol (vitamin D3) 25 25 mcg PO DAILY 11/07/20 05/26/22 mcg (1,000 unit) capsule Previous Rx's Medication Instructions Recorded polyethylene glycol 3350 17 17 g PO DAILY #527 grams 02/02/19 gram/dose oral powder (Miralax) dicyclomine 20 mg tablet 20 mg PO QID #120 tabs 12/10/20 bisoprolol fumarate 5 mg tablet 5 mg PO DAILY #90 tabs 02/16/22 lorazepam 0.5 mg tablet 0.5 mg PO BID PRN anxiety #60 tabs 02/16/22 omeprazole 20 mg capsule,delayed See Rx Instructions .Route 02/16/22 release .COMPLEX #180 caps rosuvastatin 10 mg tablet See Rx Instructions .Route 02/16/22 .COMPLEX #90 tabs amlodipine 10 mg tablet (Norvasc) 10 mg PO DAILY #90 tabs 05/26/22 losartan 100 mg tablet 100 mg PO DAILY #90 tabs 05/26/22 clopidogrel 75 mg tablet 75 mg PO DAILY Blood thinner #90 09/01/22 tabs ibuprofen 600 mg tablet 600 mg PO Q6H PRN pain #30 tabs 09/07/22 lidocaine 5 % topical patch 1 patch topical Q24H #30 ea 09/07/22 (Lidoderm) methocarbamol 750 mg tablet 750 mg PO Q8H #90 tabs 09/07/22 Allergies Allergy/AdvReac Type Severity Reaction Status Date / Time atorvastatin [From Lipitor] Allergy Mild Verified 05/26/22 10:06 [facility] Medical History
[2022-09-07 18:01] VITALS: BP 140/81; PULSE 83; RESP 22; O2SAT 96
[2022-09-07 18:30] VITALS: BP 138/79; PULSE 76; RESP 20; O2SAT 96
[2022-09-07 20:00] VITALS: BP 135/74; PULSE 76; RESP 16; TEMP 36.8; O2SAT 98
== END 2022-09-07 20:01 | disposition home or self-care (01) ==
PROVIDERS: Emergency Provider Emergency Medicine; PCP Family Medicine
DX: S39.012A Strain of muscle, fascia and tendon of lower back, initial encounter (principal); Z79.82 Long term (current) use of aspirin; Z88.8 Allergy status to other drugs, medicaments and biological substances; E78.5 Hyperlipidemia, unspecified; I10 Essential (primary) hypertension; F41.9 Anxiety disorder, unspecified; I25.10 Atherosclerotic heart disease of native coronary artery without angina pectoris
CPT/HCPCS: 72100; 96372; 99283

== ENCOUNTER → 2022-11-06 11:00 | Outpatient (CLI) | payer MEDICARE, OTHER, SELFPAY ==
[2022-11-06 11:37] LABS: Basophils # 0.1 K/mm3 (0-0.2); Basophils % 0.9 % (0.1-2.0); Eosinophils # 0.2 K/mm3 (0.0-0.4); Eosinophils % 2.8 % (0.1-12.0); Hematocrit 44.2 % (42.0-52.0); Hemoglobin 14.4 g/dL (14.1-18.0); Lymphocytes # 1.7 K/mm3 (0.7-4.5); Lymphocytes % 25.1 % (10-50); Mean Corpuscular HGB Conc 32.5 g/dL (31.8-35.4); Mean Corpuscular Hemoglobin 30.5 pg (27.0-31.2); Mean Corpuscular Volume 93.9 fl (80-94); Monocytes # 0.4 K/mm3 (0.1-1.0); Monocytes % 5.9 % (1.7-9.3); Neutrophils # 4.5 K/mm3 (1.8-7.8); Neutrophils % 65.4 % (37.0-80.0); Platelet Count 216 K/mm3 (142-424); Red Blood Count 4.71 M/mm3 (4.60-6.20); Red Cell Distribution Width 14.2 % (11.5-17.5); White Blood Count 6.8 K/mm3 (4.8-10.8)
[2022-11-06 12:19] LABS: Alanine Aminotransferase 22 U/L (12-78); Albumin Level 4.9 g/dl (3.5-5.0); Alkaline Phosphatase 87 U/L (38-126); Anion Gap 15.3 mEq/L (5-15); Aspartate Amino Transferase 29 U/L (17-59); Bilirubin,Direct 0.2 mg/dl (0.0-0.4); Bilirubin,Indirect 0.5 mg/dL (0.0-0.9); Bilirubin,Total 0.7 mg/dl (0.2-1.3); Bilirubin,Unconjugated 0.5 mg/dL (0.0-1.1); Blood Urea Nitrogen 24 mg/dl (9-20); Calcium 9.3 mg/dl (8.4-10.2); Carbon Dioxide 23 mmol/L (22.0-30.0); Chloride 107 mmol/L (98-107); Cholesterol 158 mg/dl (140-200); Estimated Glomerular Filt Rate 46 ml/min (>60); GFR (African American) 56 ML/MIN (>60); Glucose 122 mg/dl (74-100); Magnesium 1.8 mg/dl (1.6-2.3); Potassium 4.3 mmoL/L (3.5-5.1); Sodium 141 mmol/L (136-145); Triglycerides 194 mg/dl (30-150); VLDL Cholesterol 39 mg/dL (0-40)
[2022-11-06 12:26] LABS: Chol/HDL Ratio 4.4 (1-3.5); HDL Cholesterol 36 mg/dl (40-60)
[2022-11-06 12:30] LABS: Direct LDL Cholesterol 71.14 mg/dL (100-129)
[2022-11-06 12:33] LABS: Free T4 (Free Thyroxine) 0.85 ng/dl (0.78-2.19)
[2022-11-06 12:48] LABS: Thyroid Stimulating Hormone 2.52 uIU/mL (0.465-4.68)
== END ==
PROVIDERS: PCP Family Medicine; Visit Provider Internal Medicine Cardiovascular Disease
DX: E78.2 Mixed hyperlipidemia (principal); I10 Essential (primary) hypertension; I16.0 Hypertensive urgency; I25.10 Atherosclerotic heart disease of native coronary artery without angina pectoris; M79.10 Myalgia, unspecified site; N28.9 Disorder of kidney and ureter, unspecified; T46.6X5A Adverse effect of antihyperlipidemic and antiarteriosclerotic drugs, initial encounter
CPT/HCPCS: 36415; 80048; 80061; 80076; 83735; 84439; 84443; 85025

== ENCOUNTER → 2022-12-15 10:06 | Outpatient (CLI) | payer MEDICARE, OTHER, SELFPAY ==
[2022-12-15 10:16] LABS: Adenovirus,PCR Not Detected (NotDetected); Coronavirus 229E Not Detected (NotDetected); Coronavirus NL63 Not Detected (NotDetected); Coronavirus OC43 Not Detected (NotDetected); Coronovirus HKU1,PCR Not Detected (NotDetected); Human Metapneumovirus Not Detected (NotDetected); Influenza A, PCR Not Detected (NotDetected); Influenza AH1, 2009 Not Detected (NotDetected); Influenza AH1, PCR Not Detected (NotDetected); Influenza AH3,PCR Not Detected (NotDetected); Influenza B, PCR Not Detected (NotDetected); Rhinovirus/Enterovirus Not Detected (NotDetected)
[2022-12-15 11:28] LABS: Basophils # 0.1 K/mm3 (0-0.2); Basophils % 1.3 % (0.1-2.0); Eosinophils # 0.2 K/mm3 (0.0-0.4); Eosinophils % 2.5 % (0.1-12.0); Hematocrit 44.8 % (42.0-52.0); Hemoglobin 14.7 g/dL (14.1-18.0); Lymphocytes # 1.8 K/mm3 (0.7-4.5); Lymphocytes % 21.1 % (10-50); Mean Corpuscular HGB Conc 32.8 g/dL (31.8-35.4); Mean Corpuscular Hemoglobin 30.5 pg (27.0-31.2); Monocytes # 0.6 K/mm3 (0.1-1.0); Monocytes % 7.3 % (1.7-9.3); Neutrophils # 5.8 K/mm3 (1.8-7.8); Neutrophils % 67.9 % (37.0-80.0); Platelet Count 239 K/mm3 (142-424); Red Blood Count 4.81 M/mm3 (4.60-6.20); Red Cell Distribution Width 13.9 % (11.5-17.5); White Blood Count 8.6 K/mm3 (4.8-10.8)
[2022-12-15 11:30] LABS: Chloride 102 mmol/L (98-107); Sodium 142 mmol/L (136-145)
[2022-12-15 11:33] LABS: Blood Urea Nitrogen 21 mg/dl (9-20); Estimated Glomerular Filt Rate 50 ml/min (>60); GFR (African American) 60 ML/MIN (>60)
[2022-12-15 11:34] LABS: Calcium 9.3 mg/dl (8.4-10.2); Carbon Dioxide 31 mmol/L (22.0-30.0); Glucose 128 mg/dl (74-100)
[2022-12-15 13:34] LABS: Bordetella Pertussis Not Detected (NotDetected); Chlamydophila Pneumoniae, PCR Not Detected (NotDetected); Coronavirus 19, PCR Not Detected (NotDetected); Mycoplasma Pneumoniae, PCR Not Detected (NotDetected); Parainfluenza 1, PCR Not Detected (NotDetected); Parainfluenza 2, PCR Not Detected (NotDetected); Parainfluenza 3, PCR Not Detected (NotDetected); Parainfluenza 4, PCR Not Detected (NotDetected); Respiratory Syncytial Virus Not Detected (NotDetected)
== END ==
PROVIDERS: PCP Family Medicine; Visit Provider Physician Assistant
DX: E78.2 Mixed hyperlipidemia (principal); I10 Essential (primary) hypertension; I25.10 Atherosclerotic heart disease of native coronary artery without angina pectoris; N28.9 Disorder of kidney and ureter, unspecified; Z20.828 Contact with and (suspected) exposure to other viral communicable diseases; R06.09 Other forms of dyspnea
CPT/HCPCS: 36415; 80048; 85025; 87581; 87632; 87798; C9803; U0003; U0005

== ENCOUNTER → 2023-04-15 08:07 | Outpatient (CLI) | payer MEDICARE, OTHER, SELFPAY ==
[2023-04-15 10:31] LABS: Chloride 102 mmol/L (98-107); Potassium 4.3 mmoL/L (3.5-5.1); Sodium 141 mmol/L (136-145)
[2023-04-15 10:34] LABS: Anion Gap 16.3 mEq/L (5-15); Blood Urea Nitrogen 19 mg/dl (9-20); Calcium 9.3 mg/dl (8.4-10.2); Carbon Dioxide 27 mmol/L (22.0-30.0); Estimated Glomerular Filt Rate 46 ml/min (>60); GFR (African American) 56 ML/MIN (>60); Glucose 114 mg/dl (74-100)
== END ==
PROVIDERS: PCP Family Medicine; Visit Provider Internal Medicine Cardiovascular Disease
DX: E78.2 Mixed hyperlipidemia (principal); I10 Essential (primary) hypertension; I25.10 Atherosclerotic heart disease of native coronary artery without angina pectoris
CPT/HCPCS: 36415; 80048

== ENCOUNTER 2023-12-03 08:15 | Outpatient (CLI) | payer MEDICARE, OTHER, SELFPAY ==
[2023-12-03 09:14] LABS: Basophils # 0.1 K/mm3 (0-0.2); Eosinophils # 0.3 K/mm3 (0.0-0.4); Eosinophils % 3.5 % (0.1-12.0); Hemoglobin 14.5 g/dL (14.1-18.0); Lymphocytes # 2.1 K/mm3 (0.7-4.5); Lymphocytes % 24.8 % (10-50); Mean Corpuscular HGB Conc 34.5 g/dL (31.8-35.4); Mean Corpuscular Hemoglobin 32.2 pg (27.0-31.2); Mean Corpuscular Volume 93.5 fl (80-94); Monocytes # 0.5 K/mm3 (0.1-1.0); Monocytes % 6.5 % (1.7-9.3); Neutrophils # 5.3 K/mm3 (1.8-7.8); Neutrophils % 64.2 % (37.0-80.0); Platelet Count 177 K/mm3 (142-424); Red Blood Count 4.49 M/mm3 (4.60-6.20); Red Cell Distribution Width 13.9 % (11.5-17.5); White Blood Count 8.3 K/mm3 (4.8-10.8)
[2023-12-03 09:39] LABS: Alanine Aminotransferase 22 U/L (12-78); Albumin Level 4.3 g/dl (3.5-5.0); Alkaline Phosphatase 64 U/L (38-126); Anion Gap 12.9 mEq/L (5-15); Aspartate Amino Transferase 30 U/L (17-59); Bilirubin,Indirect 0.9 mg/dL (0.0-0.9); Bilirubin,Total 0.9 mg/dl (0.2-1.3); Bilirubin,Unconjugated 1.2 mg/dL (0.0-1.1); Blood Urea Nitrogen 23 mg/dl (9-20); Calcium 9.3 mg/dl (8.4-10.2); Carbon Dioxide 27 mmol/L (22.0-30.0); Chloride 104 mmol/L (98-107); Chol/HDL Ratio 5.8 (1-3.5); Cholesterol 167 mg/dl (140-200); Estimated Glomerular Filt Rate 40 ml/min (>60); GFR (African American) 48 ML/MIN (>60); Glucose 127 mg/dl (74-100); HDL Cholesterol 29 mg/dl (40-60); Potassium 3.9 mmoL/L (3.5-5.1); Sodium 140 mmol/L (136-145); Triglycerides 304 mg/dl (30-150); VLDL Cholesterol 61 mg/dL (0-40)
[2023-12-03 09:50] LABS: Direct LDL Cholesterol 75.05 mg/dL (100-129)
[2023-12-03 10:43] LABS: Free T4 (Free Thyroxine) 0.79 ng/dl (0.78-2.19)
[2023-12-03 10:56] LABS: Thyroid Stimulating Hormone 2.33 uIU/mL (0.465-4.68)
== END 2023-12-03 23:59 ==
LOC: LAB 08:16
PROVIDERS: PCP Internal Medicine; Visit Provider Internal Medicine
DX: E78.2 Mixed hyperlipidemia (principal); I25.10 Atherosclerotic heart disease of native coronary artery without angina pectoris; R06.00 Dyspnea, unspecified; E11.9 Type 2 diabetes mellitus without complications; I11.9 Hypertensive heart disease without heart failure
CPT/HCPCS: 36415; 80048; 80061; 80076; 83036; 84439; 84443; 85025

== ENCOUNTER 2023-12-28 11:27 | Outpatient (CLI) | payer MEDICARE, OTHER, SELFPAY ==
[2023-12-28 12:04] LABS: Anion Gap 9.1 mEq/L (5-15); Blood Urea Nitrogen 15 mg/dl (9-20); Calcium 9.3 mg/dl (8.4-10.2); Carbon Dioxide 30 mmol/L (22.0-30.0); Chloride 104 mmol/L (98-107); Estimated Glomerular Filt Rate 46 ml/min (>60); GFR (African American) 56 ML/MIN (>60); Glucose 116 mg/dl (74-100); Potassium 4.1 mmoL/L (3.5-5.1); Sodium 139 mmol/L (136-145)
== END 2023-12-28 23:59 ==
PROVIDERS: PCP Internal Medicine; Visit Provider Physician Assistant
DX: I10 Essential (primary) hypertension (principal); I25.10 Atherosclerotic heart disease of native coronary artery without angina pectoris; N28.9 Disorder of kidney and ureter, unspecified
CPT/HCPCS: 36415; 80048

== ENCOUNTER 2024-06-10 09:40 | Outpatient (CLI) | payer MEDICARE, OTHER, SELFPAY ==
[2024-06-10 09:56] LABS: Basophils # 0.1 K/mm3 (0-0.2); Basophils % 1.2 % (0.1-2.0); Eosinophils # 0.3 K/mm3 (0.0-0.4); Hematocrit 43.9 % (42.0-52.0); Hemoglobin 14.3 g/dL (14.1-18.0); Lymphocytes # 1.9 K/mm3 (0.7-4.5); Lymphocytes % 25.5 % (10-50); Mean Corpuscular HGB Conc 32.6 g/dL (31.8-35.4); Mean Corpuscular Hemoglobin 31.1 pg (27.0-31.2); Mean Corpuscular Volume 95.5 fl (80-94); Mean Platelet Volume 8.5 fl (7.4-10.4); Monocytes # 0.4 K/mm3 (0.1-1.0); Monocytes % 5.4 % (1.7-9.3); Neutrophils # 4.9 K/mm3 (1.8-7.8); Platelet Count 190 K/mm3 (142-424); Red Blood Count 4.59 M/mm3 (4.60-6.20); Red Cell Distribution Width 14.6 % (11.5-17.5); White Blood Count 7.7 K/mm3 (4.8-10.8)
[2024-06-10 10:37] LABS: Free T4 (Free Thyroxine) 0.83 ng/dl (0.78-2.19)
[2024-06-10 10:51] LABS: Thyroid Stimulating Hormone 2.45 uIU/mL (0.465-4.68)
[2024-06-10 11:28] LABS: Alanine Aminotransferase 24 U/L (12-78); Albumin Level 4.1 g/dl (3.5-5.0); Alkaline Phosphatase 80 U/L (38-126); Anion Gap 8.5 mEq/L (5-15); Aspartate Amino Transferase 31 U/L (17-59); Bilirubin,Indirect 0.7 mg/dL (0.0-0.9); Bilirubin,Total 0.7 mg/dl (0.2-1.3); Bilirubin,Unconjugated 0.8 mg/dL (0.0-1.1); Blood Urea Nitrogen 20 mg/dl (9-20); Calcium 9.4 mg/dl (8.4-10.2); Carbon Dioxide 29 mmol/L (22.0-30.0); Chloride 106 mmol/L (98-107); Chol/HDL Ratio 4.7 (1-3.5); Cholesterol 161 mg/dl (140-200); Estimated Glomerular Filt Rate 46 ml/min (>60); GFR (African American) 56 ML/MIN (>60); Glucose 128 mg/dl (74-100); HDL Cholesterol 34 mg/dl (40-60); Magnesium 1.7 mg/dl (1.6-2.3); Potassium 4.5 mmoL/L (3.5-5.1); Sodium 139 mmol/L (136-145); Total Protein,Serum 7.2 g/dl (6.3-8.2); Triglycerides 233 mg/dl (30-150); VLDL Cholesterol 47 mg/dL (0-40)
[2024-06-10 11:39] LABS: Direct LDL Cholesterol 75.86 mg/dL (100-129)
[2024-06-10 12:27] LABS: Hemoglobin A1C 6.2 % (4.0-6.0)
== END 2024-06-10 23:59 | disposition home or self-care (01) ==
LOC: LAB 09:42
PROVIDERS: PCP Internal Medicine; Visit Provider Physician Assistant
DX: E78.2 Mixed hyperlipidemia (principal); I25.10 Atherosclerotic heart disease of native coronary artery without angina pectoris; I10 Essential (primary) hypertension; N18.31 Chronic kidney disease, stage 3a; F41.9 Anxiety disorder, unspecified; R73.09 Other abnormal glucose
CPT/HCPCS: 36415; 80048; 80061; 80076; 83036; 83735; 84439; 84443; 85025

== ENCOUNTER 2024-09-06 09:55 | Outpatient (CLI) | payer MEDICARE, OTHER, SELFPAY ==
[2024-09-06 18:30] LABS: Basophils # 0.1 K/mm3 (0-0.2); Eosinophils # 0.2 K/mm3 (0.0-0.4); Eosinophils % 3.4 % (0.1-12.0); Hematocrit 46.4 % (42.0-52.0); Hemoglobin 15.6 g/dL (14.1-18.0); Lymphocytes # 1.7 K/mm3 (0.7-4.5); Lymphocytes % 24.4 % (10-50); Mean Corpuscular HGB Conc 33.5 g/dL (31.8-35.4); Mean Corpuscular Hemoglobin 31.7 pg (27.0-31.2); Mean Corpuscular Volume 94.4 fl (80-94); Mean Platelet Volume 8.5 fl (7.4-10.4); Monocytes # 0.4 K/mm3 (0.1-1.0); Monocytes % 5.9 % (1.7-9.3); Neutrophils # 4.6 K/mm3 (1.8-7.8); Neutrophils % 65.1 % (37.0-80.0); Platelet Count 219 K/mm3 (142-424); Red Blood Count 4.92 M/mm3 (4.60-6.20); Red Cell Distribution Width 14.1 % (11.5-17.5)
[2024-09-06 18:49] LABS: Microalbumin/Creatinine Ratio 4.7
[2024-09-06 18:59] LABS: Creatinine,Urine Random 210 mg/dL (Not Estab.)
[2024-09-06 19:08] LABS: Alanine Aminotransferase 20 U/L (12-78); Albumin Level 4.6 g/dl (3.5-5.0); Albumin/Globulin Ratio 1.5 (1.1-1.8); Alkaline Phosphatase 75 U/L (38-126); Anion Gap 15.6 mEq/L (5-15); Aspartate Amino Transferase 31 U/L (17-59); Bilirubin,Total 0.9 mg/dl (0.2-1.3); Blood Urea Nitrogen 18 mg/dl (9-20); Calcium 9.6 mg/dl (8.4-10.2); Carbon Dioxide 27 mmol/L (22.0-30.0); Chloride 103 mmol/L (98-107); Estimated Glomerular Filt Rate 43 ml/min (>60); GFR (African American) 52 ML/MIN (>60); Glucose 104 mg/dl (74-100); Potassium 4.6 mmoL/L (3.5-5.1); Sodium 141 mmol/L (136-145); Total Protein,Serum 7.6 g/dl (6.3-8.2)
[2024-09-06 19:23] LABS: 25-OH Vitamin D, Total 43.1 ng/mL (30-100)
[2024-09-06 19:39] LABS: Prostate Specific Ag Screen 0.4 ng/ml (0.0-4.0)
== END 2024-09-06 23:59 | disposition home or self-care (01) ==
LOC: LAB.DROPOF 09-07 10:02
PROVIDERS: PCP Internal Medicine; Visit Provider Internal Medicine
DX: N28.9 Disorder of kidney and ureter, unspecified (principal); R73.09 Other abnormal glucose; I10 Essential (primary) hypertension; Z12.5 Encounter for screening for malignant neoplasm of prostate; E55.9 Vitamin D deficiency, unspecified; R73.03 Prediabetes; J06.9 Acute upper respiratory infection, unspecified; I25.10 Atherosclerotic heart disease of native coronary artery without angina pectoris; F41.1 Generalized anxiety disorder; N18.31 Chronic kidney disease, stage 3a; E78.2 Mixed hyperlipidemia; M11.9 Crystal arthropathy, unspecified; M65.80 Other synovitis and tenosynovitis, unspecified site
CPT/HCPCS: 80053; 82043; 82306; 82570; 83036; 85025; G0103

== ENCOUNTER 2025-06-13 10:43 | Outpatient (CLI) | payer MEDICARE, OTHER, SELFPAY ==
[2025-06-13 15:41] LABS: Influenza A, PCR Not Detected (NotDetected); Influenza B, PCR Not Detected (NotDetected)
[2025-06-14 00:17] LABS: Coronavirus 19, PCR Detected (NotDetected)
--- OUTSIDE RECORDS SUMMARY | 2025-06-15 10:45 | XMS_ITS ---
Author Organization Unknown TREATMENT PLAN [facility] Start Date Provider Encounter for Check-up [id number] [facility]
== END 2025-06-13 23:59 | disposition home or self-care (01) ==
LOC: LAB.DROPOF 06-15 10:44
PROVIDERS: PCP Family Medicine; Visit Provider Student in an Organized Health Care Education/Training Program
DX: J06.9 Acute upper respiratory infection, unspecified (principal)
CPT/HCPCS: 87631

== ENCOUNTER 2025-06-13 12:52 | Observation (INO) | payer MEDICARE, OTHER, SELFPAY ==
[2025-06-13] VITALS (10 sets, daily range): BP systolic 106–194; BP diastolic 90–107; PULSE 50–60; RESP 14–22; TEMP 36.6–36.9; O2SAT 94–100; BMI 332.9; BMI 34.2
--- NOTE | 2025-06-13 13:03 | XR_ITS ---
FINAL REPORT TECHNIQUE: Single view chest CLINICAL HISTORY: short of breath COMPARISON: 05/17/2017 FINDINGS: A single view of the chest was obtained. The heart and mediastinum are within normal limits. The lungs are clear. There is no pneumothorax. IMPRESSION: No acute cardiopulmonary process. Reviewed, Interpreted and Dictated by Isiah Randhawa MD Transcribed by Katie Lopez Authenticated and [facility]
--- NOTE | 2025-06-13 13:05 | ECG_ITS ---
APPROVED REPORT Exam: Resting ECG HR:57 bpm ECG Measurements Heart Rate 57 AXES NJ 169 P 17 QRSd 101 QRS -39 QT 422 T 15 QTc 417 Conclusion SINUS BRADYCARDIA LEFT AXIS DEVIATION [QRS AXIS < -30] LOW QRS VOLTAGE IN PRECORDIAL LEADS [QRS DEFLECTION < 1.0 mV IN CHEST LEADS] ABNORMAL ECG UNCONFIRMED REPORT Electronically signed by : Janusz Walters, 06/13/2025 15:48:33
[2025-06-13 13:11] LABS: Influenza A, PCR Not Detected (NotDetected); Influenza B, PCR Not Detected (NotDetected)
--- NOTE | 2025-06-13 13:16 | ED_ITS ---
<Statement entered by Nae Walters MD - 06/14/25 07:26> I was consulted by the KADNICE, and we discussed the complexity of the problems being addressed. I approved the treatment and management plan for this patient's care in the emergency department, thus performing a substantive portion of the medical decision making. Nae Walters MD, CHANTELLE, FACEP Discharge Plan Disposition Patient Disposition: Admitted Clinical Impressions Clinical Impression: COVID Discharge ED Provider: Nae Walters General Adult HPI General Chief complaint: Upper Respiratory Infection Stated complaint: SOB Time Seen by Provider: 06/13/25 12:57 Mode of Arrival: Ambulatory Source of Information: Patient Description of Symptoms (Recalled from ER Triage Doc. by RN): patient reports he has been exposed to covid by several family members and co workers. he is congested, has cough, bodyaches, diarrhea since wednesday. patient denies shortness of breath History of Present Illness HPI narrative: 75-year-old male presents to the ED today for complaint at cough, diarrhea, congestion, blood in his throat in his chest, runny nose, complaining of pain in his right side, saying that it is his lung. Patient says this all started on Wednesday. He does complain of bodyaches. He was exposed to COVID by several members of his family. He he denies fevers or shortness of breath. No nausea or vomiting. No abdominal pain. No other complaints of pain. Related Data Home Medications ?Medication ?Instructions ?Recorded ?Confirmed cholecalciferol (vitamin D3) 25 25 mcg PO HS 11/07/20 06/13/25 mcg (1,000 unit) capsule bisoprolol fumarate 5 mg tablet 5 mg PO HS 06/13/25 omeprazole 20 mg capsule,delayed 20 mg PO DAILY 06/13/25 release rosuvastatin 10 mg tablet 10 mg PO HS 06/13/25 5 Previous Rx's ?Medication ?Instructions ?Recorded losartan 100 mg tablet 100 mg PO DAILY #90 tabs clopidogrel 75 mg tablet 75 mg PO DAILY Blood thinner #90 05/10/25 tabs Allergies Allergy/AdvReac Type Severity Reaction Status Date / Time evolocumab (From Repatha Allergy Intermediate Muscle Pain Verified 06/13/25 12:27 SureClick) atorvastatin (From Lipitor) Allergy Mild Verified 01/03/25 08:39 [facility] Disclaimer: The information contained in this section may have been updated after the patient was seen, as this information can be updated by other users. Medical History Elevated glucose level Anxiety Renal insufficiency Prediabetes Hearing loss HTN (hypertension) Myalgia due to HMG CoA reductase inhibitor Hyperlipidemia Surgical History No significant past surgical history Family History Family/Other Hypertension Hyperlipidemia Diabetes Social History Smoking Status: Never smoker alcohol intake: never counseling provided: provider counseling substance use type: denies use current occupational status: other Travel in the last 8 weeks?: None household members: spouse housing: house Have you lived/traveled outside US in past 30 days?: No Contact w/someone who lives/traveled outside US past 30 days?: No Exposure to someone with infectious disease in past 14 days?: No Do you have a fever (greater than 100.4 F or 38 C)?: No Have you tested positive for COVID-19?: No Exposed to someone with COVID-19 in past 14 days?: No Do you have a sore throat?: No Do you have a cough?: No Do you have any weakness?: No Do you have any diarrhea?: No Are you experiencing any unusual bleeding?: No Do you have any muscle aches/pain?: No Do you have any abdominal pain?: No Are you experiencing loss of taste or smell?: No Other Medical History Have you received the Flu Vaccine for this season: Yes Have you received the Pneumonia Vaccine: Yes ROS Obtained: Yes Systems reviewed as appropriate & no additional complaints except as documented Constitutional Constitutional: Reports as per HPI Physical Exam General General appearance: alert and in no apparent distress Head Head exam: normocephalic Eye Eye exam: Present PERRL and EOMI ENT ENT exam: Present mucous membranes moist Neck Neck exam: Present full ROM and trachea midline Respiratory Respiratory exam: Present wheezes Cardiovascular Cardiovascular exam: Present regular rate, normal rhythm, normal heart sounds, +S1 and +S2 Abdominal Exam Abdominal exam: Present soft and normal bowel sounds Extremities Exam Extremities exam: Present full ROM and normal capillary refill Neurological Exam Neurological exam: Present alert and oriented X3 Skin Skin exam: Present warm, dry and intact Medical Decision Making Medical Records Screening: Per USPSTF and CDC recommendations, given the prevalence of disease in our region, it is our hospital?s policy to screen for HIV and viral Hepatitis for all patients aged 18 and over and those with ongoing risk factors. Jb Inquiry Pt receiving controlled substance: No Jb was queried for this patient: No Vital Signs: 06/13/25 13:01 06/13/25 13:31 06/13/25 14:01 Temperature 98.5 F Temperature Source Oral Pulse Rate 55 L 58 L Pulse Rate [Right Radial] 60 Respiratory Rate 18 22 15 Blood Pressure 106/93 L 160/90 H Blood Pressure [Right Arm] 176/96 H Blood Pressure Mean [Right Arm] 122 Blood Pressure Source Blood Pressure Source [Right Arm] Automatic Cuff Blood Pressure Position Blood Pressure Position [Right Arm] Sitting 02 Sat by Pulse Oximetry 98 96 94 L Oxygen Delivery Method Room Air 06/13/25 14:30 06/13/25 15:00 06/13/25 15:31 Temperature Temperature Source Pulse Rate 55 L 52 L 60 Pulse Rate [Right Radial] Respiratory Rate 14 17 14 Blood Pressure 169/107 H 172/94 H 194/107 H Blood Pressure [Right Arm] Blood Pressure Mean [Right Arm] Blood Pressure Source Blood Pressure Source [Right Arm] Blood Pressure Position Blood Pressure Position [Right Arm] 02 Sat by Pulse Oximetry 100 96 97 Oxygen Delivery Method 06/13/25 15:32 Temperature 98.5 F Temperature Source Oral Pulse Rate 52 L Pulse Rate [Right Radial] Respiratory Rate 16 Blood Pressure 172/94 H Blood Pressure [Right Arm] Blood Pressure Mean [Right Arm] Blood Pressure Source Automatic Cuff Blood Pressure Source [Right Arm] Blood Pressure Position Supine Blood Pressure Position [Right Arm] 02 Sat by Pulse Oximetry Oxygen Delivery Method Room Air Lab Data Lab Results 06/13/25 13:08: SARS-CoV-2 (PCR) Detected A, Influenza A Untype (PCR) Not detected, Influenza Type B (PCR) Not detected 06/13/25 13:25: WBC 6.2, RBC 4.47 L, Hgb 13.7 L, Hct 41.2 L, MCV 92.2, MCH 30.6, MCHC 33.3, RDW 13.8, Plt Count 155, MPV 10.3, Neut % (Auto) 60.0, Lymph % (Auto) 22.0, [place] % (Auto) 12.2 H, Eos % (Auto) 4.4, Baso % (Auto) 0.8, Neut # (Auto) 3.7, Lymph # (Auto) 1.4, [place] # (Auto) 0.8, Eos # (Auto) 0.3, Baso # (Auto) 0.1, D-Dimer 0.74 H, Sodium 138, Potassium 4.0, Chloride 101, Carbon Dioxide 30, Anion Gap 11.0, BUN 16, Creatinine 1.20, Estimated Creat Clear 47, Estimated GFR 59, Est GFR ( Amer) 72, Glucose 114 H, Calcium 9.1, Magnesium 1.7, Total Bilirubin 0.5, AST 36, ALT 21, Alkaline Phosphatase 82, Troponin I 0.39 H, Total Protein 7.6, Albumin 4.4, Globulin 3.2, Albumin/Globulin Ratio 1.4, Lipase 56, HCV Ab PILI w/Rflx PCR Qn Negative, HIV Ag/Ab Combo Qual Negative 06/13/25 13:25 06/13/25 13:25 Orders (Tests/Meds): ED MEDICATIONS Generic Name Dose Route Start Last Admin Trade Name Freq PRN Reason Stop Dose Admin Acetaminophen 650 mg 06/13/25 16:13 Acetaminophen 325mg Tab PO 07/13/25 16:12 Q4HP PRN Fever or Mild Pain (1-3) Enoxaparin Sodium 40 mg 06/14/25 09:00 Enoxaparin 40mg/0.4ml Syringe SUBCUT 07/14/25 08:59 DAILY MARYCARMEN Ondansetron HCl 4 mg 06/13/25 16:13 Ondansetron 4mg/2ml Vial IV 07/13/25 16:12 Q6HP PRN Nausea Discontinued Medications Generic Name Dose Route Start Last Admin Trade Name Freq PRN Reason Stop Dose Admin Aspirin 325 mg 06/13/25 15:10 06/13/25 15:25 Aspirin 325mg Tablet PO 06/13/25 15:11 325 mg ONCE ONE Administration Sodium Chloride 1,000 mls @ 999 mls/hr 06/13/25 13:02 06/13/25 13:31 Sod Chlor 0.9% 1000ml Bag IV 06/13/25 14:02 999 mls/hr .Q1H1M ONE Administration Ketorolac Tromethamine 30 mg 06/13/25 13:02 06/13/25 13:31 Ketorolac 30mg/Ml Vial IV 06/13/25 13:03 30 mg ONCE ONE Administration ORDERS Category Date Time Status Chest XR -- portable [XR chest portable] Stat Exams 06/13/25 13:03 Completed CBC [Complete Blood Count Auto Diff] Stat Lab 06/13/25 13:25 Completed Comprehensive Metabolic Panel Stat Lab 06/13/25 13:25 Completed D-Dimer Stat Lab 06/13/25 13:25 Completed HIV Combo Stat Lab 06/13/25 13:25 Completed Hepatitis C Ab Qual. W/ RFX Stat Lab 06/13/25 13:25 Completed Lipase Stat Lab 06/13/25 13:25 Completed Magnesium Stat Lab 06/13/25 13:25 Completed Rapid PCR Covid and Flu A/B Stat Lab 06/13/25 13:08 Completed Trop I [Troponin I] Stat Lab 06/13/25 13:25 Completed Troponin I Q3H Lab 06/13/25 16:23 Received Troponin I Q3H Lab 06/13/25 19:15 Ordered Medical Decision Narrative: patient is a 75-year-old male presenting to the emergency department for evaluation of cough, body aches, sore throat, congestion and runny nose. Patient is hemodynamically stable and nontoxic-appearing upon arrival, afebrile. Differential diagnosis includes COVID, viral illness, among other. Workup will be conducted with hematologic labs, specific imaging. Initial inventions include crystalloid bolus, analgesics. Initial workup reviewed by me positive COVID. Elevated troponin at 0.39. Dimer was 0.74. Used years criteria to rule out PE and decide whether or not to do CTA. He has no hemoptysis, no DVT signs or symptoms, no most likely diagnosis of a PE and a less than 1 dimer. So I did not do a CTA.. Imaging informally interpreted by me and remarkable for no consolidation. Formal imaging read remarkable for nothing acute. But please see radiology read. Discussed with Dr. Walters who agrees that we should admit patient with the elevated troponin of 0.39. Diagnosed with nonspecific myocardial injury. And COVID. Patient will be admitted to hospitalist. Talk to Moises Montgomery. Patient safe for admission Critical Care Critical Care Time Critical Care Time: No
[2025-06-13] MEDS: 0.9 % SODIUM CHLORIDE 1000ML 1,000 ML 999 ML IV (13:31)
[2025-06-13] MEDS: KETOROLAC 30MG/ML VIAL 30 MG IV (13:31)
[2025-06-13 13:35] LABS: Coronavirus 19, PCR Detected (NotDetected)
[2025-06-13 13:36] LABS: Hematocrit 41.2 % (42.0-52.0); Hemoglobin 13.7 g/dL (14.1-18.0); Immature Granulocytes % 0.6 %; Mean Corpuscular HGB Conc 33.3 g/dL (31.8-35.4); Mean Corpuscular Hemoglobin 30.6 pg (27.0-31.2); Mean Corpuscular Volume 92.2 fl (80-94); Nucleated Red Blood Cells % 0 %; Platelet Count 155 K/mm3 (142-424); Red Blood Count 4.47 M/mm3 (4.60-6.20); Red Cell Distribution Width-SD 47.1 fL; White Blood Count 6.2 K/mm3 (4.8-10.8)
[2025-06-13 13:40] LABS: Albumin Level 4.4 g/dl (3.5-5.0); Chloride 101 mmol/L (98-107); Sodium 138 mmol/L (136-145)
[2025-06-13 13:41] LABS: Potassium 4.0 mmoL/L (3.5-5.1)
[2025-06-13 13:43] LABS: Alanine Aminotransferase 21 U/L (12-78); Albumin/Globulin Ratio 1.4 (1.1-1.8); Alkaline Phosphatase 82 U/L (38-126); Anion Gap 11.0 mEq/L (5-15); Aspartate Amino Transferase 36 U/L (17-59); Bilirubin,Total 0.5 mg/dl (0.2-1.3); Blood Urea Nitrogen 16 mg/dl (9-20); Carbon Dioxide 30 mmol/L (22.0-30.0); Creatinine Clearance Estimated 47 mL/min (50-200); Creatinine,Serum 1.20 mg/dl (0.66-1.25); Estimated Glomerular Filt Rate 59 ml/min (>60); GFR (African American) 72 ML/MIN (>60); Globulin 3.2 g/dL (1.3-3.2); Total Protein,Serum 7.6 g/dl (6.3-8.2)
[2025-06-13 13:44] LABS: Calcium 9.1 mg/dl (8.4-10.2); Glucose 114 mg/dl (74-100); Lipase 56 U/L (23-300); Magnesium 1.7 mg/dl (1.6-2.3)
[2025-06-13 14:00] LABS: Troponin I 0.39 ng/ml (0.00-0.034)
[2025-06-13 14:18] LABS: D-Dimer 0.74 ug/mL (0.0-0.5)
[2025-06-13 15:06] LABS: Hepatitis C Ab Qual. W/ RFX NEGATIVE (Negative)
[2025-06-13] MEDS: ASPIRIN 325MG TABLET 325 MG PO (15:25)
[2025-06-13 17:00] LABS: Troponin I < 0.01 ng/ml (0.00-0.034)
--- NOTE | 2025-06-13 18:17 | PC.NURSE ---
pt resting in bed, call light in reach, iv locked but c/d/i
--- NOTE | 2025-06-13 19:03 | EXP.HP ---
History of Present Illness *Admission Date: 06/13/25 *Reason for visit:: Shortness of breath, myalgias *History of present illness: Michael Rodriguez is a 75-year-old male with medical history significant for CAD with stent, hypertension, GERD, obesity who presents with several day onset of myalgias and intermittent shortness of breath. He states multiple family members have been tested positive for COVID-19, and began experiencing myalgias over the past few days. Decided to come to the ED for testing for COVID-19. Patient also had an episode of chest pain over this weekend, no further episodes. Endorses intermittent shortness of breath without coughing. Workup in the ED significant for COVID-19, but also troponin 0.39. EKG without acute ischemic changes. CBC, CMP, CXR unremarkable. Given elevated troponin, I discussed case with ED provider and I decided to admit patient for further evaluation of NSTEMI. [facility] Disclaimer: The information contained in this section may have been updated after the patient was seen, as this information can be updated by other users. Medical History (Updated 06/13/25 @ 19:10 by Moises Montgomery MD) NSTEMI (non-ST elevated myocardial infarction) Elevated glucose level Anxiety Renal insufficiency Prediabetes Hearing loss HTN (hypertension) Myalgia due to HMG CoA reductase inhibitor Hyperlipidemia Surgical History No significant past surgical history Family History Family/Other Hypertension Hyperlipidemia Diabetes Social History (Updated 06/13/25 @ 16:40 by Vita Estevez RN) Smoking Status: Never smoker alcohol intake: never counseling provided: provider counseling substance use type: denies use current occupational status: other Travel in the last 8 weeks?: None household members: spouse housing: house Have you lived/traveled outside US in past 30 days?: No Contact w/someone who lives/traveled outside US past 30 days?: No Exposure to someone with infectious disease in past 14 days?: No Do you have a fever (greater than 100.4 F or 38 C)?: No Have you tested positive for COVID-19?: No Exposed to someone with COVID-19 in past 14 days?: No Do you have a sore throat?: No Do you have a cough?: No Do you have any weakness?: No Are you experiencing any nausea/vomitting?: No Do you have any diarrhea?: No Are you experiencing any unusual bleeding?: No Do you have any muscle aches/pain?: No Do you have any abdominal pain?: No Are you experiencing loss of taste or smell?: No Other Medical History Have you received the Flu Vaccine for this season: Yes Have you received the Pneumonia Vaccine: Yes Meds Home Medications and Allergies Home Medications ?Medication ?Instructions ?Recorded ?Confirmed ?Type cholecalciferol (vitamin D3) 25 25 mcg PO HS 11/07/20 06/13/25 History mcg (1,000 unit) capsule losartan 100 mg tablet 100 mg PO DAILY #90 tabs 08/25/24 06/13/25 Rx clopidogrel 75 mg tablet 75 mg PO DAILY Blood thinner #90 05/10/25 06/13/25 Rx tabs bisoprolol fumarate 5 mg tablet 5 mg PO HS 06/13/25 06/13/25 History omeprazole 20 mg capsule,delayed 20 mg PO DAILY 06/13/25 06/13/25 History release rosuvastatin 10 mg tablet 10 mg PO HS 06/13/25 06/13/25 History New Prescriptions to Start Prescriptions: Allergies Allergy/AdvReac Type Severity Reaction Status Date / Time evolocumab (From Repatha Allergy Intermediate Muscle Pain Verified 06/13/25 12:27 SureClick) atorvastatin (From Lipitor) Allergy Mild Verified 01/03/25 08:39 Exam Data for Last 24 hours Vital signs and Labs for Last 24 Hours: Temp Pulse Resp BP Pulse Ox O2 Del Method 98.5 F 57 L 18 172/90 H 99 Room Air 06/13/25 15:32 06/13/25 16:00 06/13/25 16:00 06/13/25 16:00 06/13/25 16:33 06/13/25 18:43 Laboratory Results - last 24 hr 06/13/25 13:08: SARS-CoV-2 (PCR) Detected A, Influenza A Untype (PCR) Not detected, Influenza Type B (PCR) Not detected 06/13/25 13:25: WBC 6.2, RBC 4.47 L, Hgb 13.7 L, Hct 41.2 L, MCV 92.2, MCH 30.6, MCHC 33.3, RDW 13.8, Plt Count 155, MPV 10.3, Neut % (Auto) 60.0, Lymph % (Auto) 22.0, [place] % (Auto) 12.2 H, Eos % (Auto) 4.4, Baso % (Auto) 0.8, Neut # (Auto) 3.7, Lymph # (Auto) 1.4, [place] # (Auto) 0.8, Eos # (Auto) 0.3, Baso # (Auto) 0.1, D-Dimer 0.74 H, Sodium 138, Potassium 4.0, Chloride 101, Carbon Dioxide 30, Anion Gap 11.0, BUN 16, Creatinine 1.20, Estimated Creat Clear 47, Estimated GFR 59, Est GFR ( Amer) 72, Glucose 114 H, Calcium 9.1, Magnesium 1.7, Total Bilirubin 0.5, AST 36, ALT 21, Alkaline Phosphatase 82, Troponin I 0.39 H, Total Protein 7.6, Albumin 4.4, Globulin 3.2, Albumin/Globulin Ratio 1.4, Lipase 56, HCV Ab PILI w/Rflx PCR Qn Negative, HIV Ag/Ab Combo Qual Negative 06/13/25 16:23: Troponin I < 0.01 I & O for Last 24 hours: Intake & Output 06/10/25 06/11/25 06/12/25 06/13/25 23:59 23:59 23:59 23:59 Weight 96.116 kg Constitutional Constitutional: no acute distress and obese *Routine HEENT Exam Head: Present normocephalic Eye: Present EOMI and PERRL ENT: Present mucous membranes moist *Routine Neck Exam Neck: Present supple; Absent lymphadenopathy *Routine Respiratory Exam Respiratory: Present CTA bilaterally *Routine Cardiovascular Exam Cardiovascular: Present RRR *Routine Abdominal Exam Abdominal: Present soft and normoactive bowel sounds; Absent tenderness *Routine Rectal Exam Rectal:: deferred *Routine Genitalia Exam Genitalia:: deferred *Routine Extremities Exam Extremities: Absent cyanosis, clubbing or edema *Routine Skin Exam Skin: Present warm; Absent rash *Routine Neurological Exam Neurological: Present alert and oriented X3 Assessment and Plan *Assessment and plan (1) COVID: Status: Acute Category: Medical Code(s): U07.1 - COVID-19 (2) NSTEMI (non-ST elevated myocardial infarction): Status: Acute Category: Medical Code(s): I21.4 - Non-ST elevation (NSTEMI) myocardial infarction Plan Michael Rodriguez is a 75-year-old male with medical history significant for CAD with stent, hypertension, GERD, obesity who presents with several day onset of myalgias and intermittent shortness of breath. He states multiple family members have been tested positive for COVID-19, and began experiencing myalgias over the past few days. Decided to come to the ED for testing for COVID-19. Patient also had an episode of chest pain over this weekend, no further episodes. Endorses intermittent shortness of breath without coughing. Workup in the ED significant for COVID-19, but also troponin 0.39. EKG without acute ischemic changes. CBC, CMP, CXR unremarkable. Given elevated troponin, I discussed case with ED provider and I decided to admit patient for further evaluation of NSTEMI. #NSTEMI, likely type II #COVID-19 viral syndrome #History of CAD with stent ? Presented with myalgias, an episode of chest pain, and intermittent shortness of breath. ? Initial troponin 0.39, EKG without acute ischemic changes. Repeat troponin less than 0.01. Will hold off on anticoagulation. ? Continue home Plavix 75 mg, bisoprolol, statin. ? Follow-up ECHO. ? Cardiology consulted, pending further recommendations. ? Continuous cardiac telemetry. #Hypertension ? Resume home losartan, bisoprolol. #GERD ? Continue home PPI. #Obesity ? Complicates all aspects of care. Full code DVT prophylaxis: Lovenox 40 mg
--- NOTE | 2025-06-13 20:14 | PC.NURSE ---
Andreia RN notified of patients BP
[2025-06-13 20:36] LABS: Troponin I < 0.01 ng/ml (0.00-0.034)
[2025-06-13] MEDS: PANTOPRAZOLE 40MG TABLET 40 MG PO (21:58)
[2025-06-13] MEDS: BISOPROLOL 5MG TABLET 5 MG PO (21:58)
[2025-06-13] MEDS: ROSUVASTATIN 10 MG 10 EACH PO (22:02)
--- NOTE | 2025-06-13 22:03 | PC.NURSE ---
Pt stated he took his own at home med, bisoprolol after he took the bisoprolol the nurse gave him, provider notified. At home medications that brought in were locked up in drawer at bedside. charge nurse notified.
[2025-06-14] VITALS: BP 167/92; PULSE 40; PULSE 46; RESP 18; TEMP 36.7; O2SAT 97
[2025-06-14 04:00] VITALS: BP 162/77; PULSE 40; PULSE 48; RESP 16; TEMP 36.5; O2SAT 96; BMI 34.1
[2025-06-14 05:55] LABS: Hematocrit 36.5 % (42.0-52.0); Immature Granulocytes % 0.6 %; Mean Corpuscular HGB Conc 32.6 g/dL (31.8-35.4); Mean Corpuscular Hemoglobin 30.4 pg (27.0-31.2); Mean Corpuscular Volume 93.1 fl (80-94); Nucleated Red Blood Cells % 0 %; Platelet Count 146 K/mm3 (142-424); Red Blood Count 3.92 M/mm3 (4.60-6.20); Red Cell Distribution Width-SD 46.9 fL; White Blood Count 5.0 K/mm3 (4.8-10.8)
[2025-06-14 06:04] LABS: Hemoglobin 11.9 g/dL (14.1-18.0)
[2025-06-14 06:12] LABS: Albumin Level 3.7 g/dl (3.5-5.0); Chloride 102 mmol/L (98-107)
[2025-06-14 06:13] LABS: Potassium 4.3 mmoL/L (3.5-5.1); Sodium 138 mmol/L (136-145)
[2025-06-14 06:15] LABS: Anion Gap 9.3 mEq/L (5-15); Blood Urea Nitrogen 16 mg/dl (9-20); Carbon Dioxide 31 mmol/L (22.0-30.0); Creatinine Clearance Estimated 68 mL/min (50-200); Creatinine,Serum 1.30 mg/dl (0.66-1.25); Estimated Glomerular Filt Rate 54 ml/min (>60); GFR (African American) 65 ML/MIN (>60)
[2025-06-14 06:16] LABS: Alanine Aminotransferase 16 U/L (12-78); Albumin/Globulin Ratio 1.4 (1.1-1.8); Alkaline Phosphatase 65 U/L (38-126); Aspartate Amino Transferase 26 U/L (17-59); Bilirubin,Total 0.5 mg/dl (0.2-1.3); Calcium 8.6 mg/dl (8.4-10.2); Globulin 2.6 g/dL (1.3-3.2); Glucose 103 mg/dl (74-100); Magnesium 1.7 mg/dl (1.6-2.3); Total Protein,Serum 6.3 g/dl (6.3-8.2)
--- NOTE | 2025-06-14 06:37 | PC.NURSE ---
v/s, ox4, RA, at bedside. Pt in droplet precautions for COVID +. Plan of care ongoing.
--- NOTE | 2025-06-14 07:58 | CA_ITS ---
APPROVED REPORT EXAM: Comprehensive 2D, Doppler, and color-flow Echocardiogram Server Software Engineer: Rhona Arroyo, GRISEL, RVS Ht: 5 ft 6 in Wt: 212lbs BSA: 2.05 BP: 172/90 mmHg Indications: NSTEMI, Covid +, CAD-Stent, HTN, HLD prediabetes, SOB 2D Dimensions Left Atrium 4.02 cm M-Mode Dimensions RVDd 2.85 cm (0.9-2.6) LA Diam 4.12 cm (1.9-4.0) LVDd 5.43 cm (3.5-5.7) LVDs 3.30 cm (3.5-5.7) IVSd 0.96 cm (0.6-1.1) PWd 0.84 cm (0.6-1.1) EF (Teich) 69.20% EPSs 0.61 cm FS 39.20% EDV (Teich) 143.10 mL TAPSE 2.39 (<1.7) ESV (Teich) 44.10 mL LV Diastology E Decel Time 210 (160-240 msec) E/A Ratio 1.11 MED A' 10.40 cm/s LAT A' 12.40 cm/s Aortic Valve FANG Index 1.43 cm2/m2 AoV Peak Balbir. 111.0 (50-130 cm/s) AO Peak GR. 5.00 mmHg AO Mean GR. 2.50 (<5 mmHg) AO VTI 27.8 (18-25 cm) FANG (VTI) 3.00 (2.5-4.5 cm2) Mitral Valve MV A Velocity 98.0 (40-130 cm/s) E/A Ratio 1.11 Pulmonary Valve VT End VMAX 183.0 cm/s Left Ventricle The left ventricle is normal size. Left ventricular systolic function is normal. The left ventricular ejection fraction is within the normal range. Proximal septal thickening is present. There is normal LV segmental wall motion. The left ventricular diastolic function is normal. LVEF is 55% Right Ventricle The right ventricle is mildly dilated. The right ventricular systolic function is normal. Atria The left atrium size is normal. The right atrium size is normal. There is no color Doppler evidence of interatrial shunt. Aortic Valve The aortic valve is mildly thickened. There is no hemodynamically significant aortic valvular stenosis. No aortic regurgitation is present. Mitral Valve The mitral valve is normal in structure. No evidence of mitral valve stenosis. Trace mitral regurgitation is present. Tricuspid Valve The tricuspid valve leaflets are thin and pliable. Trace tricuspid regurgitation. There is insufficient TR jet to estimate RVSP. Pulmonic Valve The pulmonary valve is grossly normal in structure. Trace pulmonic valve regurgitation is present. Great Vessels The aortic root is normal in size. IVC is normal in size and collapses >50% with inspiration. Pericardium There is no pericardial effusion. Other Information Study Quality: Fair Conclusion Normal biventricular systolic function. Mild RV dilation. No significant valvular stenosis or regurgitation. Electronically signed by : Mallory Alvarez MD 06/14/2025 10:16:27
[2025-06-14 08:00] VITALS: BP 178/78; PULSE 40; PULSE 49; RESP 18; TEMP 36.6; O2SAT 98
[2025-06-14] MEDS: IRBESARTAN 150MG TAB 150 MG PO (08:51)
[2025-06-14] MEDS: CLOPIDOGREL 75MG TAB 75 MG PO (08:51)
--- NOTE | 2025-06-14 10:10 | EXP.CARD.CON ---
History of Present Illness History of Present Illness Consult date: 06/14/25 Requesting physician: Moises Montgomery Consult reason: shortness of breath Chief complaint: SOA, cough, exposure to COVID Additional Medical History:: 1. CAD -GUY to LAD with PTCA to first diagonal, 11/20/2016 -Repeat cardiac cath due to endothelial dysfunction, 11/24/2016, patent LAD stent and diagonal artery -Lexiscan Myoview, 11/2019, normal with EF 65%. 2. Hyperlipidemia -LDL 75 in 2023, on statin therapy -Intolerant to Repatha (arthralgias) 3. Hypertension -Echocardiogram, 06/14/2025, normal BiV systolic function, mild RV dilation. No significant valve disease. 4. CKD, stage II -Baseline creatinine around 1.5 with GFR 46 5. History of prediabetes -Hemoglobin A1c 6.0, 09/2024 6. COVID infection, 06/2025 7. History of GERD -EGD, 2016, Dr. Hernandez,1. Nonerosive GERD with mild esophageal dysmotility/esophageal dyskinesia 2. Mild linear reactive gastritis History of present illness: Michael Rodriguez is a 75-year-old male with medical history significant for CAD with stent, hypertension, GERD, obesity who presents with several day onset of myalgias and intermittent shortness of breath. He states multiple family members have been tested positive for COVID-19, and began experiencing myalgias over the past few days. Decided to come to the ED for testing for COVID-19. Patient also had an episode of chest pain over this weekend, no further episodes. Endorses intermittent shortness of breath without coughing. Workup in the ED significant for COVID-19, but also troponin 0.39. EKG without acute ischemic changes. CBC, CMP, CXR unremarkable. Given elevated troponin, I discussed case with ED provider and I decided to admit patient for further evaluation of NSTEMI. The above per Dr. Montgomery The above events reviewed with the patient and confirmed. Patient was having echocardiogram during my examination in the ejection fraction appears to be preserved with no significant pericardial effusion. The troponins show an isolated elevation of 0.39 with follow-up troponins 0.01. EKG showed no acute ST segment changes. I discussed the results of the echo and the lab work with the patient and at this time would not recommend any further treatment. [facility] Disclaimer: The information contained in this section may have been updated after the patient was seen, as this information can be updated by other users. Medical History (Updated 06/14/25 @ 11:18 by NANCY Toth) NSTEMI (non-ST elevated myocardial infarction) Elevated glucose level Anxiety Renal insufficiency Prediabetes Hearing loss HTN (hypertension) Myalgia due to HMG CoA reductase inhibitor Hyperlipidemia Surgical History No significant past surgical history Family History Family/Other Hypertension Hyperlipidemia Diabetes Social History (Updated 06/13/25 @ 16:40 by Vita Estevez, YISEL) Smoking Status: Never smoker alcohol intake: never counseling provided: provider counseling substance use type: denies use current occupational status: other Travel in the last 8 weeks?: None household members: spouse housing: house Review of Systems Review of Systems Review of systems:: pertinent systems reviewed and negative unless documented below Exam Data for Last 24 hours Vital signs and Labs for Last 24 Hours: Temp Pulse Resp BP Pulse Ox O2 Del Method 97.8 F 49 L 18 178/78 H 98 Room Air 06/14/25 08:00 06/14/25 08:00 06/14/25 08:00 06/14/25 08:00 06/14/25 08:00 06/14/25 09:00 Laboratory Results - last 24 hr 06/13/25 13:08: SARS-CoV-2 (PCR) Detected A, Influenza A Untype (PCR) Not detected, Influenza Type B (PCR) Not detected 06/13/25 13:25: WBC 6.2, RBC 4.47 L, Hgb 13.7 L, Hct 41.2 L, MCV 92.2, MCH 30.6, MCHC 33.3, RDW 13.8, Plt Count 155, MPV 10.3, Neut % (Auto) 60.0, Lymph % (Auto) 22.0, [place] % (Auto) 12.2 H, Eos % (Auto) 4.4, Baso % (Auto) 0.8, Neut # (Auto) 3.7, Lymph # (Auto) 1.4, [place] # (Auto) 0.8, Eos # (Auto) 0.3, Baso # (Auto) 0.1, D-Dimer 0.74 H, Sodium 138, Potassium 4.0, Chloride 101, Carbon Dioxide 30, Anion Gap 11.0, BUN 16, Creatinine 1.20, Estimated Creat Clear 47, Estimated GFR 59, Est GFR ( Amer) 72, Glucose 114 H, Calcium 9.1, Magnesium 1.7, Total Bilirubin 0.5, AST 36, ALT 21, Alkaline Phosphatase 82, Troponin I 0.39 H, Total Protein 7.6, Albumin 4.4, Globulin 3.2, Albumin/Globulin Ratio 1.4, Lipase 56, HCV Ab PILI w/Rflx PCR Qn Negative, HIV Ag/Ab Combo Qual Negative 06/13/25 16:23: Troponin I < 0.01 06/13/25 19:45: Troponin I < 0.01 06/14/25 05:19: WBC 5.0, RBC 3.92 L, Hgb 11.9 L D, Hct 36.5 L, MCV 93.1, MCH 30.4, MCHC 32.6, RDW 13.8, Plt Count 146, MPV 10.7 H, Neut % (Auto) 52.9, Lymph % (Auto) 30.3, [place] % (Auto) 9.7 H, Eos % (Auto) 5.7, Baso % (Auto) 0.8, Neut # (Auto) 2.6, Lymph # (Auto) 1.5, [place] # (Auto) 0.5, Eos # (Auto) 0.3, Baso # (Auto) 0.0, Sodium 138, Potassium 4.3, Chloride 102, Carbon Dioxide 31 H, Anion Gap 9.3, BUN 16, Creatinine 1.30 H, Estimated Creat Clear 68, Estimated GFR 54 L, Est GFR ( Amer) 65, Glucose 103 H, Calcium 8.6, Magnesium 1.7, Total Bilirubin 0.5, AST 26 D, ALT 16, Alkaline Phosphatase 65, Total Protein 6.3, Albumin 3.7 D, Globulin 2.6, Albumin/Globulin Ratio 1.4 I & O for Last 24 hours: Intake & Output 06/11/25 06/12/25 06/13/25 06/14/25 11:59 11:59 11:59 11:59 Intake Total 480 / 480 Output Total 300 / 300 Balance 180 / 180 Weight 212 lb 3.2 oz Constitutional Constitutional: no acute distress *Routine Respiratory Exam Respiratory: Present decreased breath sounds and rhonchi; Absent wheezes *Routine Cardiovascular Exam Cardiovascular: Present RRR; Absent murmur, gallop or rubs *Routine Extremities Exam Extremities: Absent edema *Routine Neurological Exam Neurological: Present alert, oriented X3 and CN II-XII intact Meds Home Medications and Allergies Home Medications ?Medication ?Instructions ?Recorded ?Confirmed ?Type cholecalciferol (vitamin D3) 25 25 mcg PO HS 11/07/20 06/13/25 History mcg (1,000 unit) capsule losartan 100 mg tablet 100 mg PO DAILY #90 tabs 08/25/24 06/13/25 Rx clopidogrel 75 mg tablet 75 mg PO DAILY Blood thinner #90 05/10/25 06/13/25 Rx tabs bisoprolol fumarate 5 mg tablet 5 mg PO HS 06/13/25 06/13/25 History omeprazole 20 mg capsule,delayed 20 mg PO BID 06/13/25 06/14/25 History release rosuvastatin 10 mg tablet 10 mg PO HS 06/13/25 06/13/25 History albuterol sulfate 90 mcg/actuation 2 puff inhalation Q6H PRN 06/14/25 Rx aerosol inhaler (Ventolin HFA) shortness of breath or wheezing #8.5 grams New Prescriptions to Start Prescriptions: albuterol sulfate [Ventolin HFA] Moises Montgomery Allergies Allergy/AdvReac Type Severity Reaction Status Date / Time evolocumab (From Repatha Allergy Intermediate Muscle Pain Verified 06/13/25 12:27 SureClick) atorvastatin (From Lipitor) Allergy Mild Verified 01/03/25 08:39 Assessment and Plan *Assessment and plan (1) COVID: Status: Acute Category: Medical Code(s): U07.1 - COVID-19 (2) Elevated troponin level not due myocardial infarction: Status: Acute Category: Medical Code(s): R79.89 - Other specified abnormal findings of blood chemistry (3) Generalized anxiety disorder: Status: Acute Category: Medical Code(s): F41.1 - Generalized anxiety disorder (4) CAD (coronary artery disease): Status: Chronic Qualifiers: Coronary Disease-Associated Artery/Lesion type: [place] artery [place] vs. transplanted heart: [place] heart Associated angina: without angina Qualified Code(s): I25.10 - Atherosclerotic heart disease of [place] coronary artery without angina pectoris Category: Medical Code(s): I25.10 - Atherosclerotic heart disease of [place] coronary artery without angina pectoris (5) Essential hypertension: Status: Chronic Category: Medical Code(s): I10 - Essential (primary) hypertension (6) Hyperlipidemia: Status: Chronic Qualifiers: Hyperlipidemia type: mixed hyperlipidemia Qualified Code(s): E78.2 - Mixed hyperlipidemia Category: Medical Code(s): E78.5 - Hyperlipidemia, unspecified Plan 1. COVID -Not requiring supplemental oxygen 2. Isolated single elevated troponin, not felt due to MT -No EKG changes -Echocardiogram shows preserved EF with no evidence of pericardial effusion -Continue home medications of Plavix and bisoprolol along with atorvastatin 3. Hypertension -Continue bisoprolol 5 mg daily (bradycardia today as a result of 2 doses of bisoprolol given close together) -Continue Avapro 150 mg but increase to twice daily -Add amlodipine 5 mg daily for blood pressure greater than 140/90 4. Hyperlipidemia -Continue statin therapy 5. Mild anemia with hemoglobin 12-13 -no history of hemoptysis or hematochezia 6. Anxiety with history of panic attacks -possible PTSD related to cardiac cath in 2017 Increase Avapro to 150 twice daily Add amlodipine 5 mg daily for blood pressure greater than 140/90 mmHg consider adding hydralazine 25 mg TID if needed. Nothing further to add with no plans for any further testing. Patient could be discharged home later today if blood pressure improved. Home med recommendations: Rosuvastatin 10 mg daily Bisoprolol 5 mg daily Plavix 75 mg daily Avapro 150 twice daily (discontinue losartan) Add amlodipine 5 mg daily Follow-up in our office in 2 weeks.
--- NOTE | 2025-06-14 10:57 | EXP.DC.SUM ---
General Admission date:: 06/13/25 HPI HPI HPI: Michael Rodriguez is a 75-year-old male with medical history significant for CAD with stent, hypertension, GERD, obesity who presents with several day onset of myalgias and intermittent shortness of breath. He states multiple family members have been tested positive for COVID-19, and began experiencing myalgias over the past few days. Decided to come to the ED for testing for COVID-19. Patient also had an episode of chest pain over this weekend, no further episodes. Endorses intermittent shortness of breath without coughing. Workup in the ED significant for COVID-19, but also troponin 0.39. EKG without acute ischemic changes. CBC, CMP, CXR unremarkable. Given elevated troponin, I discussed case with ED provider and I decided to admit patient for further evaluation of NSTEMI. Hospital Course Hospital Course Hospital Course: Michael Rodriguez is a 75-year-old male with medical history significant for CAD with stent, hypertension, GERD, obesity who presents with several day onset of myalgias and intermittent shortness of breath. He states multiple family members have been tested positive for COVID-19, and began experiencing myalgias over the past few days. Decided to come to the ED for testing for COVID-19. Patient also had an episode of chest pain over this weekend, no further episodes. Endorses intermittent shortness of breath without coughing. Workup in the ED significant for COVID-19, but also troponin 0.39. EKG without acute ischemic changes. CBC, CMP, CXR unremarkable. Given elevated troponin, I discussed case with ED provider and I decided to admit patient for further evaluation of NSTEMI. #NSTEMI, likely type II #COVID-19 acute bronchitis #History of CAD with stent ? Presented with myalgias, an episode of chest pain, and intermittent shortness of breath. Respiratory panel positive for COVID-19. ? Initial troponin 0.39, EKG without acute ischemic changes. Subsequent troponins less than 0.01. ? ECHO with normal biventricular systolic function, no wall motion abnormalities. ? Cardiology consulted, NSTEMI likely type II. No plans for inpatient intervention, will consider outpatient ischemic workup. ? Continue home Plavix 75 mg, bisoprolol, statin. Follow-up with cardiology within 2 week. ? Discharged with albuterol inhaler as needed for acute bronchitis from COVID-19. #Hypertension ? Resume home losartan, bisoprolol. #GERD ? Continue home PPI. #Obesity ? Complicates all aspects of care. Exam Data for Last 24 hours Vital signs and Labs for Last 24 Hours: Temp Pulse Resp BP Pulse Ox O2 Del Method 97.8 F 49 L 18 178/78 H 98 Room Air 06/14/25 08:00 06/14/25 08:00 06/14/25 08:00 06/14/25 08:00 06/14/25 08:00 06/14/25 09:00 Laboratory Results - last 24 hr 06/13/25 13:08: SARS-CoV-2 (PCR) Detected A, Influenza A Untype (PCR) Not detected, Influenza Type B (PCR) Not detected 06/13/25 13:25: WBC 6.2, RBC 4.47 L, Hgb 13.7 L, Hct 41.2 L, MCV 92.2, MCH 30.6, MCHC 33.3, RDW 13.8, Plt Count 155, MPV 10.3, Neut % (Auto) 60.0, Lymph % (Auto) 22.0, [place] % (Auto) 12.2 H, Eos % (Auto) 4.4, Baso % (Auto) 0.8, Neut # (Auto) 3.7, Lymph # (Auto) 1.4, [place] # (Auto) 0.8, Eos # (Auto) 0.3, Baso # (Auto) 0.1, D-Dimer 0.74 H, Sodium 138, Potassium 4.0, Chloride 101, Carbon Dioxide 30, Anion Gap 11.0, BUN 16, Creatinine 1.20, Estimated Creat Clear 47, Estimated GFR 59, Est GFR ( Amer) 72, Glucose 114 H, Calcium 9.1, Magnesium 1.7, Total Bilirubin 0.5, AST 36, ALT 21, Alkaline Phosphatase 82, Troponin I 0.39 H, Total Protein 7.6, Albumin 4.4, Globulin 3.2, Albumin/Globulin Ratio 1.4, Lipase 56, HCV Ab PILI w/Rflx PCR Qn Negative, HIV Ag/Ab Combo Qual Negative 06/13/25 16:23: Troponin I < 0.01 06/13/25 19:45: Troponin I < 0.01 06/14/25 05:19: WBC 5.0, RBC 3.92 L, Hgb 11.9 L D, Hct 36.5 L, MCV 93.1, MCH 30.4, MCHC 32.6, RDW 13.8, Plt Count 146, MPV 10.7 H, Neut % (Auto) 52.9, Lymph % (Auto) 30.3, [place] % (Auto) 9.7 H, Eos % (Auto) 5.7, Baso % (Auto) 0.8, Neut # (Auto) 2.6, Lymph # (Auto) 1.5, [place] # (Auto) 0.5, Eos # (Auto) 0.3, Baso # (Auto) 0.0, Sodium 138, Potassium 4.3, Chloride 102, Carbon Dioxide 31 H, Anion Gap 9.3, BUN 16, Creatinine 1.30 H, Estimated Creat Clear 68, Estimated GFR 54 L, Est GFR ( Amer) 65, Glucose 103 H, Calcium 8.6, Magnesium 1.7, Total Bilirubin 0.5, AST 26 D, ALT 16, Alkaline Phosphatase 65, Total Protein 6.3, Albumin 3.7 D, Globulin 2.6, Albumin/Globulin Ratio 1.4 I & O for Last 24 hours: Intake & Output 06/11/25 06/12/25 06/13/25 06/14/25 23:59 23:59 23:59 23:59 Intake Total 120 / 240 360 / 360 Output Total 300 / 300 Balance -180 / -60 360 / 360 Weight 96.116 kg 96.252 kg Constitutional Constitutional: no acute distress *Routine HEENT Exam Head: Present normocephalic Eye: Present EOMI and PERRL ENT: Present mucous membranes moist *Routine Neck Exam Neck: Present supple; Absent lymphadenopathy *Routine Respiratory Exam Respiratory: Present rhonchi; Absent CTA bilaterally *Routine Cardiovascular Exam Cardiovascular: Present RRR *Routine Abdominal Exam Abdominal: Present soft and normoactive bowel sounds; Absent tenderness *Routine Extremities Exam Extremities: Absent cyanosis, clubbing or edema *Routine Skin Exam Skin: Present warm; Absent rash *Routine Neurological Exam Neurological: Present alert and oriented X3 Results Data Completed and Pending Labs on day of discharge: Labs from last 24 hours 06/14/25 06/13/25 06/13/25 05:19 19:45 16:23 WBC 5.0 RBC 3.92 L Hgb 11.9 L D Hct 36.5 L MCV 93.1 MCH 30.4 MCHC 32.6 RDW 13.8 Plt Count 146 MPV 10.7 H Neut % (Auto) 52.9 Lymph % (Auto) 30.3 [place] % (Auto) 9.7 H Eos % (Auto) 5.7 Baso % (Auto) 0.8 Neut # (Auto) 2.6 Lymph # (Auto) 1.5 [place] # (Auto) 0.5 Eos # (Auto) 0.3 Baso # (Auto) 0.0 D-Dimer Sodium 138 Potassium 4.3 Chloride 102 Carbon Dioxide 31 H Anion Gap 9.3 BUN 16 Creatinine 1.30 H Estimated Creat Clear 68 Estimated GFR 54 L Est GFR ( Amer) 65 Glucose 103 H Calcium 8.6 Magnesium 1.7 Total Bilirubin 0.5 AST 26 D ALT 16 Alkaline Phosphatase 65 Troponin I < 0.01 < 0.01 Total Protein 6.3 Albumin 3.7 D Globulin 2.6 Albumin/Globulin Ratio 1.4 Lipase SARS-CoV-2 (PCR) HCV Ab PILI w/Rflx PCR Qn HIV Ag/Ab Combo Qual Influenza A Untype (PCR) Influenza Type B (PCR) 06/13/25 06/13/25 13:25 13:08 WBC 6.2 RBC 4.47 L Hgb 13.7 L Hct 41.2 L MCV 92.2 MCH 30.6 MCHC 33.3 RDW 13.8 Plt Count 155 MPV 10.3 Neut % (Auto) 60.0 Lymph % (Auto) 22.0 [place] % (Auto) 12.2 H Eos % (Auto) 4.4 Baso % (Auto) 0.8 Neut # (Auto) 3.7 Lymph # (Auto) 1.4 [place] # (Auto) 0.8 Eos # (Auto) 0.3 Baso # (Auto) 0.1 D-Dimer 0.74 H Sodium 138 Potassium 4.0 Chloride 101 Carbon Dioxide 30 Anion Gap 11.0 BUN 16 Creatinine 1.20 Estimated Creat Clear 47 Estimated GFR 59 Est GFR ( Amer) 72 Glucose 114 H Calcium 9.1 Magnesium 1.7 Total Bilirubin 0.5 AST 36 ALT 21 Alkaline Phosphatase 82 Troponin I 0.39 H Total Protein 7.6 Albumin 4.4 Globulin 3.2 Albumin/Globulin Ratio 1.4 Lipase 56 SARS-CoV-2 (PCR) Detected A HCV Ab PILI w/Rflx PCR Qn Negative HIV Ag/Ab Combo Qual Negative Influenza A Untype (PCR) Not detected Influenza Type B (PCR) Not detected DS: Diagnosis Discharge Diagnosis (1) COVID: Status: Acute Code(s): U07.1 - COVID-19 (2) NSTEMI (non-ST elevated myocardial infarction): Status: Acute Code(s): I21.4 - Non-ST elevation (NSTEMI) myocardial infarction Meds Home Medications and Allergies Home Medications ?Medication ?Instructions ?Recorded ?Confirmed ?Type cholecalciferol (vitamin D3) 25 25 mcg PO HS 11/07/20 06/13/25 History mcg (1,000 unit) capsule losartan 100 mg tablet 100 mg PO DAILY #90 tabs 08/25/24 06/13/25 Rx clopidogrel 75 mg tablet 75 mg PO DAILY Blood thinner #90 05/10/25 06/13/25 Rx tabs bisoprolol fumarate 5 mg tablet 5 mg PO HS 06/13/25 06/13/25 History omeprazole 20 mg capsule,delayed 20 mg PO BID 06/13/25 06/14/25 History release rosuvastatin 10 mg tablet 10 mg PO HS 06/13/25 06/13/25 History albuterol sulfate 90 mcg/actuation 2 puff inhalation Q6H PRN 06/14/25 Rx aerosol inhaler (Ventolin HFA) shortness of breath or wheezing #8.5 grams New Prescriptions to Start Prescriptions: albuterol sulfate [Ventolin HFA] Moises Montgomery Allergies Allergy/AdvReac Type Severity Reaction Status Date / Time evolocumab (From Repatha Allergy Intermediate Muscle Pain Verified 06/13/25 12:27 SureClick) atorvastatin (From Lipitor) Allergy Mild Verified 01/03/25 08:39 Discharge Plan Disposition Patient Disposition: Home, Self-Care Condition: Fair Follow up Plan Follow up with: Cory Quijano MD [Primary Care Provider, Family Practice] - 06/18/25 10:00 am Igor Coley PA [Physician Waiter/Waitress, Cardiology] - 2 weeks Prescriptions/Medication Reconciliation: New albuterol sulfate [Ventolin HFA] 90 mcg/actuation HFA aerosol inhaler 2 puff inhalation Q6H PRN (Reason: shortness of breath or wheezing) Qty: 8.5 0RF Continued cholecalciferol (vitamin D3) 25 mcg (1,000 unit) capsule 25 mcg PO HS losartan 100 mg tablet 100 mg PO DAILY Qty: 90 3RF clopidogrel 75 mg tablet 75 mg PO DAILY Qty: 90 3RF bisoprolol fumarate 5 mg tablet 5 mg PO HS omeprazole 20 mg capsule,delayed release(DR/EC) 20 mg PO BID Rx Instructions: TAKE 1 CAPSULE BY MOUTH TWICE DAILY rosuvastatin 10 mg tablet 10 mg PO HS Problem Reconciliation Problems Reviewed?: Yes Patient Discharge Instructions Patient Instructions: DI for COVID-19 (Suspected or Confirmed ) Print Language: Macedonian Providers Primary Care Provider: Cory Quijano Admit Provider: Moises Montgomery Attending Provider: Moises Montgomery
[2025-06-14] MEDS: AMLODIPINE 5MG TABLET 5 MG PO (11:45)
--- NOTE | 2025-06-15 10:04 | SW/DCPLANNER ---
Spoke with patient on the phone. Patient stated that he is doing good and got a good nights sleep. Patient stated that he is aware of his upcoming appointments. Patient stated that he has not picked [facility] due to they had to order it. Patient stated that he has no concerns or questions at this time. Chanda IRIZARRY Hearing Aid Dispenser
== END 2025-06-14 11:47 | disposition home or self-care (01) ==
LOC: ER 13:01 → 2ND 15:10
PROVIDERS: Nurse Practitioner; Admitting Provider Student in an Organized Health Care Education/Training Program; Emergency Provider Student in an Organized Health Care Education/Training Program; PCP Family Medicine; Visit Provider Student in an Organized Health Care Education/Training Program
DX: U07.1 COVID-19 (principal); I25.2 Old myocardial infarction; F41.1 Generalized anxiety disorder; I25.10 Atherosclerotic heart disease of native coronary artery without angina pectoris; I12.9 Hypertensive chronic kidney disease with stage 1 through stage 4 chronic kidney disease, or unspecified chronic kidney disease; E78.2 Mixed hyperlipidemia; D64.9 Anemia, unspecified; R79.89 Other specified abnormal findings of blood chemistry; E66.9 Obesity, unspecified; N18.2 Chronic kidney disease, stage 2 (mild); K21.9 Gastro-esophageal reflux disease without esophagitis; R00.1 Bradycardia, unspecified; Z79.02 Long term (current) use of antithrombotics/antiplatelets; Z95.5 Presence of coronary angioplasty implant and graft; Z88.8 Allergy status to other drugs, medicaments and biological substances; Z68.34 Body mass index [BMI] 34.0-34.9, adult; Z79.899 Other long term (current) drug therapy
CPT/HCPCS: 36415; 71045; 80053; 83690; 83735; 84484; 85025; 85378; 86803; 87389; 87636; 93005; 93306; 96361; 96374; 99285; G0378; J1650; J1885; J7030